=== PATIENT | male | born 1950 | race Caucasian/White ===

== ENCOUNTER 2024-09-03 16:46 | Inpatient (IN) | payer OTHER, MEDICAID ==
[~2024-09-03] VITALS: Ht 165.1 cm; Wt 63.0 kg
[2024-09-03 17:42] LABS: HEMATOCRIT 56.6 % (42.0-52.0); MEAN CORPUSCULAR HEMOGLOBIN 32.2 pg (27.0-33.0); MEAN CORPUSCULAR HGB CONC 36.2 g/dl (32.0-36.5); PLATELET COUNT, AUTOMATED 183 10^3/uL (150-450); RED BLOOD COUNT 6.36 10^6/uL (4.30-6.10); WHITE BLOOD COUNT 19.4 10^3/uL (4.0-10.0)
[2024-09-03 18:03] LABS: HEMOGLOBIN 20.5 g/dl (13.5-17.5)
[2024-09-03 18:14] LABS: BLOOD UREA NITROGEN 25 MG/DL (9-23); CALCIUM LEVEL 8.7 MG/DL (8.3-10.6); CARBON DIOXIDE LEVEL 23 MMOL/L (20-31); CHLORIDE LEVEL 94 MMOL/L (98-107); CREATININE FOR GFR 0.75 MG/DL (0.70-1.30); GLOMERULAR FILTRATION RATE > 60.0 (>42); GLUCOSE, FASTING 150 MG/DL (74-106); SODIUM LEVEL 131 MMOL/L (136-145)
[2024-09-03] MEDS: NS (Normal Saline) 0.9% 1,000 ML IV ONE (18:40)
[2024-09-03] MEDS ORDERED: ISOVUE-370 76% 100ML VIAL As Ordered ONE (18:45)
[2024-09-03] MEDS: NS 0.9% IV ONE (18:55)
[2024-09-03] MEDS: [UNRECOGNIZED DRUG - OTHER] IV ONE (18:55)
[2024-09-03 19:15] LABS: ALBUMIN 3.1 G/DL (3.2-5.2); ALKALINE PHOSPHATASE 91 U/L (40-129); ALT/SGPT 106 U/L (7.0-40); AST/SGOT 480 U/L (<34); BILIRUBIN,DIRECT 0.3 MG/DL (<0.4); BILIRUBIN,TOTAL 0.7 MG/DL (0.3-1.2)
[2024-09-03 19:22] LABS: CPK CREATINE PHOSPHOKINASE 13286 U/L (46-171)
[2024-09-03 20:55] LABS: APPEARANCE, URINE HAZY (CLEAR); BACTERIA, URINE AUTO 1+ (NEGATIVE); BILIRUBIN, URINE AUTO NEGATIVE (NEGATIVE); BLOOD, URINE BLOOD 3+ (NEGATIVE); COLOR, URINE AMBER (YELLOW); GLUCOSE, URINE (UA) AUTO 1+ mg/dL (NEGATIVE); GRANULAR CAST, URINE AUTO 20 /LPF; KETONE, URINE AUTO 1+ mg/dL (NEGATIVE); LEUKOCYTE ESTERASE, URINE AUTO NEGATIVE (NEGATIVE); MUCUS, URINE SMALL (NEGATIVE); NITRITE, URINE AUTO NEGATIVE (NEGATIVE); PROTEIN, URINE AUTO 3+ mg/dL (NEGATIVE); RBC, URINE AUTO 4 /HPF (0-3); SPECIFIC GRAVITY URINE AUTO 1.031 (1.002-1.035); SQUAMOUS EPITHELIAL CELL UR AU 2 /HPF (0-6); UROBILINOGEN, URINE AUTO 0.2 mg/dL (0.0-2.0); WBC, URINE AUTO 8 /HPF (0-3)
[2024-09-03 20:57] LABS: INR 0.88; PARTIAL THROMBOPLASTIN TIME 33.4 SECONDS (24.8-34.2); PROTHROMBIN TIME 12.3 SECONDS (12.5-14.5)
[2024-09-03] MEDS ORDERED: IBUP200C25 PO (21:27)
[2024-09-03] MEDS ORDERED: HOME MED LIST COMPLETE! XX SCH (21:30)
[2024-09-03] MEDS ORDERED: ACETAMINOPHEN 325 MG TAB PO PRN (22:45)
[2024-09-03] MEDS: NS (Normal Saline) 0.9% 2,000 ML IV SCH (23:30)
[2024-09-03] MEDS: DOXYCYCLINE HYCLATE 100MG TABLET PO SCH (23:37)
[2024-09-03] MEDS: PANTOPRAZOLE 40MG VIAL IV SCH (23:37)
[2024-09-03 23:43] LABS: CHOLESTEROL LEVEL 210 MG/DL (<200); CHOLESTEROL RISK RATIO 3.45 (<5); HDL CHOLESTEROL 60.8 MG/DL (>40); LDL CHOLESTEROL 125.4 MG/DL (<100); NON-HDL-C 149.2 MG/DL; TRIGLYCERIDES LEVEL 119 MG/DL (<150)
[2024-09-04] VITALS (10 sets, daily range): BP systolic 117–162; BP diastolic 61–82; TEMP 97.4–98.6; O2SAT 92–95
[2024-09-04] MEDS: cefTRIAXone SOD 2 GM in DEXTROSE 5% (D5W) ADV/MINI-BAG 50 ML IV SCH (00:22)
[2024-09-04 05:34] LABS: HEMATOCRIT 49.9 % (42.0-52.0); MEAN CORPUSCULAR HEMOGLOBIN 31.5 pg (27.0-33.0); MEAN CORPUSCULAR HGB CONC 35.1 g/dl (32.0-36.5); MEAN CORPUSCULAR VOLUME 89.7 fl (80.0-96.0); PLATELET COUNT, AUTOMATED 132 10^3/uL (150-450); RED BLOOD COUNT 5.56 10^6/uL (4.30-6.10); WHITE BLOOD COUNT 13.5 10^3/uL (4.0-10.0)
[2024-09-04 05:36] LABS: HEMOGLOBIN 17.5 g/dl (13.5-17.5)
[2024-09-04 05:56] LABS: ALKALINE PHOSPHATASE 60 U/L (40-129); ALT/SGPT 85 U/L (7.0-40); AST/SGOT 382 U/L (<34); BILIRUBIN,TOTAL 0.3 MG/DL (0.3-1.2); BLOOD UREA NITROGEN 20 MG/DL (9-23); CARBON DIOXIDE LEVEL 24 MMOL/L (20-31); CHLORIDE LEVEL 106 MMOL/L (98-107); CREATININE FOR GFR 0.57 MG/DL (0.70-1.30); GLOMERULAR FILTRATION RATE > 60.0 (>42); GLUCOSE, FASTING 88 MG/DL (74-106); POTASSIUM SERUM 3.7 MMOL/L (3.5-5.1); SODIUM LEVEL 138 MMOL/L (136-145); TOTAL PROTEIN 4.8 G/DL (5.7-8.2)
[2024-09-04] MEDS ORDERED: NS (Normal Saline) 0.9% 1,000 ML IV SCH (07:45)
[2024-09-04] MEDS: LIDOCAINE 5% (LIDODERM) PATCH TD SCH (09:11)
[2024-09-04] MEDS: LR 1,000 ML IV SCH (09:11)
[2024-09-04] MEDS ORDERED: LORazepam 2 MG TAB PO PRN (10:10)
[2024-09-04] MEDS: FOLIC ACID 1MG TAB PO SCH (10:19)
[2024-09-04] MEDS: MULTIVITAMINS/MINERALS THERAP 1 TAB PO SCH (10:19)
[2024-09-04] MEDS: THIAMINE 100 MG TAB PO SCH (10:19)
[2024-09-04] MEDS ORDERED: AMPICILLIN SOD/SULBACTAM SOD 1.5 GM in DEXTROSE 5% (D5W) ADV/MINI-BAG 50 ML IV SCH (10:25)
[2024-09-04 11:29] LABS: HEPATITIS B SURFACE ANTIBODY NEGATIVE (POSITIVE)
[2024-09-04 11:41] LABS: HEPATITIS B SURFACE ANTIGEN NEGATIVE (NEGATIVE)
[2024-09-04] MEDS: AMPICILLIN SOD/SULBACTAM SOD 3 GM in D5W MINI-BAG 100 ML IV SCH (11:45)
[2024-09-04] MEDS: ENOXAPARIN 40MG/0.4ML SYRINGE (J1650 PER 10MG) SC SCH (11:46)
[2024-09-04 12:03] LABS: HEPATITIS C VIRUS ABY INDEX 0.02 INDEX (<0.8)
[2024-09-04] MEDS: ACETAMINOPHEN 325 MG TAB PO PRN (14:45)
[2024-09-05] VITALS (10 sets, daily range): BP systolic 131–178; BP diastolic 65–88; TEMP 97.6–100.6; O2SAT 90–96
[2024-09-05] MEDS: KETOROLAC 30 MG/ML 1ML VIAL IV PRN (00:39)
[2024-09-05 05:24] LABS: MEAN CORPUSCULAR HEMOGLOBIN 31.3 pg (27.0-33.0); MEAN CORPUSCULAR HGB CONC 34.2 g/dl (32.0-36.5); MEAN CORPUSCULAR VOLUME 91.5 fl (80.0-96.0); PLATELET COUNT, AUTOMATED 111 10^3/uL (150-450); RED BLOOD COUNT 4.92 10^6/uL (4.30-6.10); WHITE BLOOD COUNT 9.7 10^3/uL (4.0-10.0)
[2024-09-05 05:27] LABS: HEMOGLOBIN 15.4 g/dl (13.5-17.5)
[2024-09-05 06:21] LABS: ALBUMIN 1.8 G/DL (3.2-5.2); ALKALINE PHOSPHATASE 52 U/L (40-129); ALT/SGPT 69 U/L (7.0-40); AST/SGOT 281 U/L (<34); BILIRUBIN,TOTAL 0.4 MG/DL (0.3-1.2); BLOOD UREA NITROGEN 13 MG/DL (9-23); CALCIUM LEVEL 7.2 MG/DL (8.3-10.6); CARBON DIOXIDE LEVEL 27 MMOL/L (20-31); CHLORIDE LEVEL 104 MMOL/L (98-107); CPK CREATINE PHOSPHOKINASE 5111 U/L (46-171); CREATININE FOR GFR 0.52 MG/DL (0.70-1.30); GLOMERULAR FILTRATION RATE > 60.0 (>42); GLUCOSE, FASTING 76 MG/DL (74-106); POTASSIUM SERUM 3.3 MMOL/L (3.5-5.1); SODIUM LEVEL 138 MMOL/L (136-145); TOTAL PROTEIN 4.4 G/DL (5.7-8.2)
[2024-09-05 07:35] LABS: ERYTHROCYTE SEDIMENTATION RATE 29 mm/hr (0-20)
[2024-09-05 07:50] LABS: C REACTIVE PROTEIN QUANTITATIV 12.17 MG/DL (<1.0)
[2024-09-05] MEDS: POTASSIUM CHLORIDE 10MEQ SR TABLET PO ONE (09:40)
[2024-09-06 00:05] VITALS: BP 137/69; TEMP 99.6; O2SAT 92
[2024-09-06 04:24] VITALS: BP 157/76; TEMP 100.3; O2SAT 90
[2024-09-06 07:11] LABS: HEMATOCRIT 42.3 % (42.0-52.0); HEMOGLOBIN 14.7 g/dl (13.5-17.5); MEAN CORPUSCULAR HEMOGLOBIN 31.7 pg (27.0-33.0); MEAN CORPUSCULAR HGB CONC 34.8 g/dl (32.0-36.5); MEAN CORPUSCULAR VOLUME 91.2 fl (80.0-96.0); RED BLOOD COUNT 4.64 10^6/uL (4.30-6.10)
[2024-09-06 07:40] LABS: PLATELET COUNT, AUTOMATED 88 10^3/uL (150-450)
[2024-09-06 07:42] LABS: ALBUMIN 1.6 G/DL (3.2-5.2); ALKALINE PHOSPHATASE 50 U/L (40-129); ALT/SGPT 56 U/L (7.0-40); AST/SGOT 204 U/L (<34); BILIRUBIN,TOTAL 0.5 MG/DL (0.3-1.2); BLOOD UREA NITROGEN 9 MG/DL (9-23); CARBON DIOXIDE LEVEL 30 MMOL/L (20-31); CHLORIDE LEVEL 100 MMOL/L (98-107); CREATININE FOR GFR 0.42 MG/DL (0.70-1.30); GLOMERULAR FILTRATION RATE > 60.0 (>42); GLUCOSE, FASTING 92 MG/DL (74-106); POTASSIUM SERUM 3.2 MMOL/L (3.5-5.1); SODIUM LEVEL 135 MMOL/L (136-145); TOTAL PROTEIN 4.2 G/DL (5.7-8.2)
[2024-09-06 07:59] LABS: CPK CREATINE PHOSPHOKINASE 3030 U/L (46-171)
[2024-09-06 08:00] VITALS: BP 154/81; TEMP 98.8; O2SAT 92
[2024-09-06] MEDS: OSELTAMIVIR PHOSPHATE 75 MG CAP PO SCH (09:27)
[2024-09-06 12:37] VITALS: BP 155/74; TEMP 98.2; O2SAT 91
[2024-09-06] MEDS: POTASSIUM CHLORIDE 10MEQ SR TABLET PO ONE (15:45)
[2024-09-06 16:00] VITALS: BP 156/68; TEMP 98.2; O2SAT 93
[2024-09-06] MEDS: AUGMENTIN 875 MG TAB PO SCH (20:19)
[2024-09-06 20:29] VITALS: BP 145/75; TEMP 100; O2SAT 92
[2024-09-07 00:19] VITALS: BP 155/77; TEMP 99.6; O2SAT 95
[2024-09-07 04:18] VITALS: BP 148/72; TEMP 99.6; O2SAT 92
[2024-09-07 07:29] VITALS: BP 160/76; TEMP 99.4; O2SAT 93
[2024-09-07 07:32] LABS: HEMATOCRIT 44.6 % (42.0-52.0); HEMOGLOBIN 15.3 g/dl (13.5-17.5); MEAN CORPUSCULAR HEMOGLOBIN 31.5 pg (27.0-33.0); MEAN CORPUSCULAR HGB CONC 34.3 g/dl (32.0-36.5); RED BLOOD COUNT 4.85 10^6/uL (4.30-6.10); WHITE BLOOD COUNT 6.8 10^3/uL (4.0-10.0)
[2024-09-07 07:40] LABS: PLATELET COUNT, AUTOMATED 99 10^3/uL (150-450)
[2024-09-07 08:20] LABS: ALBUMIN 1.7 G/DL (3.2-5.2); ALKALINE PHOSPHATASE 50 U/L (40-129); ALT/SGPT 59 U/L (7.0-40); AST/SGOT 187 U/L (<34); BILIRUBIN,TOTAL 0.5 MG/DL (0.3-1.2); BLOOD UREA NITROGEN 6 MG/DL (9-23); CALCIUM LEVEL 7.1 MG/DL (8.3-10.6); CARBON DIOXIDE LEVEL 31 MMOL/L (20-31); CHLORIDE LEVEL 99 MMOL/L (98-107); CPK CREATINE PHOSPHOKINASE 2154 U/L (46-171); GLOMERULAR FILTRATION RATE > 60.0 (>42); GLUCOSE, FASTING 89 MG/DL (74-106); POTASSIUM SERUM 3.4 MMOL/L (3.5-5.1); SODIUM LEVEL 136 MMOL/L (136-145); TOTAL PROTEIN 4.5 G/DL (5.7-8.2)
[2024-09-07] MEDS: POTASSIUM CHLORIDE 10MEQ SR TABLET PO ONE (10:48)
[2024-09-07] MEDS: MAG SULF 1GM/100ML (MAG RUN) 1 GM in IV 1 EA IV SCH (10:48)
[2024-09-07 16:00] VITALS: BP 142/75; TEMP 98.1; O2SAT 90
[2024-09-07 16:32] VITALS: O2SAT 95
[2024-09-07 19:47] VITALS: BP 156/74; TEMP 97.2; O2SAT 94
[2024-09-07] MEDS: CLOPIDOGREL 75 MG TAB PO SCH (23:00)
[2024-09-07] MEDS: ASPIRIN 81MG ENTERIC TABLET PO SCH (23:30)
[2024-09-08] MEDS: ONDANSETRON 4MG 2ML VIAL IV ONE (03:30)
[2024-09-08 07:41] VITALS: BP 183/86; TEMP 98.2; O2SAT 80
[2024-09-08] MEDS: ATORVASTATIN 20 MG TAB PO SCH (10:39)
[2024-09-08 11:00] VITALS: BP 180/98; TEMP 98.1; O2SAT 92
[2024-09-08] MEDS: amLODIPine 5 MG TAB PO SCH (11:55)
[2024-09-08 13:52] VITALS: BP 176/72
[2024-09-08 15:17] VITALS: BP 158/78; TEMP 98.3; O2SAT 94
[2024-09-08 15:21] LABS: HEMATOCRIT 50.3 % (42.0-52.0); HEMOGLOBIN 17.2 g/dl (13.5-17.5); MEAN CORPUSCULAR HEMOGLOBIN 31.4 pg (27.0-33.0); MEAN CORPUSCULAR HGB CONC 34.2 g/dl (32.0-36.5); MEAN CORPUSCULAR VOLUME 91.8 fl (80.0-96.0); PLATELET COUNT, AUTOMATED 157 10^3/uL (150-450); RED BLOOD COUNT 5.48 10^6/uL (4.30-6.10); WHITE BLOOD COUNT 5.7 10^3/uL (4.0-10.0)
[2024-09-08 15:48] LABS: HEMOGLOBIN A1c 6.2 % (4.0-6.0)
[2024-09-08 16:10] LABS: ALKALINE PHOSPHATASE 83 U/L (40-129); ALT/SGPT 73 U/L (7.0-40); AST/SGOT 170 U/L (<34); BILIRUBIN,TOTAL 0.6 MG/DL (0.3-1.2); BLOOD UREA NITROGEN 6 MG/DL (9-23); CALCIUM LEVEL 7.4 MG/DL (8.3-10.6); CARBON DIOXIDE LEVEL 34 MMOL/L (20-31); CHLORIDE LEVEL 96 MMOL/L (98-107); CHOLESTEROL LEVEL 124 MG/DL (<200); CHOLESTEROL RISK RATIO 3.69 (<5); CPK CREATINE PHOSPHOKINASE 1501 U/L (46-171); CREATININE FOR GFR 0.54 MG/DL (0.70-1.30); GLOMERULAR FILTRATION RATE > 60.0 (>42); GLUCOSE, FASTING 106 MG/DL (74-106); HDL CHOLESTEROL 33.6 MG/DL (>40); LDL CHOLESTEROL 69.4 MG/DL (<100); NON-HDL-C 90.4 MG/DL; SODIUM LEVEL 136 MMOL/L (136-145); TOTAL PROTEIN 5.2 G/DL (5.7-8.2); TRIGLYCERIDES LEVEL 105 MG/DL (<150)
[2024-09-09 05:46] LABS: HEMATOCRIT 48.4 % (42.0-52.0); HEMOGLOBIN 16.8 g/dl (13.5-17.5); MEAN CORPUSCULAR HEMOGLOBIN 31.6 pg (27.0-33.0); MEAN CORPUSCULAR HGB CONC 34.7 g/dl (32.0-36.5); PLATELET COUNT, AUTOMATED 161 10^3/uL (150-450); RED BLOOD COUNT 5.32 10^6/uL (4.30-6.10); WHITE BLOOD COUNT 13.4 10^3/uL (4.0-10.0)
[2024-09-09 06:08] LABS: ALBUMIN 1.9 G/DL (3.2-5.2); ALKALINE PHOSPHATASE 82 U/L (40-129); ALT/SGPT 64 U/L (7.0-40); AST/SGOT 119 U/L (<34); BILIRUBIN,TOTAL 0.7 MG/DL (0.3-1.2); BLOOD UREA NITROGEN 7 MG/DL (9-23); CALCIUM LEVEL 7.6 MG/DL (8.3-10.6); CARBON DIOXIDE LEVEL 31 MMOL/L (20-31); CHLORIDE LEVEL 95 MMOL/L (98-107); CREATININE FOR GFR 0.53 MG/DL (0.70-1.30); GLOMERULAR FILTRATION RATE > 60.0 (>42); GLUCOSE, FASTING 96 MG/DL (74-106); POTASSIUM SERUM 3.4 MMOL/L (3.5-5.1); SODIUM LEVEL 136 MMOL/L (136-145); TOTAL PROTEIN 5.1 G/DL (5.7-8.2)
[2024-09-09 06:41] LABS: MAGNESIUM LEVEL 1.8 MG/DL (1.8-2.4)
[2024-09-09 07:33] VITALS: BP 162/84; TEMP 99.2; O2SAT 90
[2024-09-09] MEDS: POTASSIUM CHLORIDE 10MEQ SR TABLET PO ONE (09:49)
[2024-09-09 13:33] VITALS: BP 147/71; TEMP 97.9; O2SAT 88
[2024-09-09] MEDS: LOSARTAN 25 MG TAB PO SCH (13:48)
[2024-09-09 15:20] VITALS: BP 137/75; TEMP 98; O2SAT 91
[2024-09-09 16:29] LABS: PROCALCITONIN 0.28 ng/ml
[2024-09-09 21:04] VITALS: BP 147/76; TEMP 99.1; O2SAT 88
[2024-09-10 04:00] VITALS: BP 126/59; TEMP 99; O2SAT 89
[2024-09-10 05:01] LABS: HEMATOCRIT 44.7 % (42.0-52.0); HEMOGLOBIN 15.7 g/dl (13.5-17.5); MEAN CORPUSCULAR HEMOGLOBIN 31.3 pg (27.0-33.0); MEAN CORPUSCULAR HGB CONC 35.1 g/dl (32.0-36.5); MEAN CORPUSCULAR VOLUME 89.2 fl (80.0-96.0); PLATELET COUNT, AUTOMATED 185 10^3/uL (150-450); RED BLOOD COUNT 5.01 10^6/uL (4.30-6.10); WHITE BLOOD COUNT 19.2 10^3/uL (4.0-10.0)
[2024-09-10 07:43] LABS: BLOOD UREA NITROGEN 16 MG/DL (9-23); CALCIUM LEVEL 7.3 MG/DL (8.3-10.6); CARBON DIOXIDE LEVEL 28 MMOL/L (20-31); CHLORIDE LEVEL 98 MMOL/L (98-107); CREATININE FOR GFR 0.51 MG/DL (0.70-1.30); GLOMERULAR FILTRATION RATE > 60.0 (>42); GLUCOSE, FASTING 103 MG/DL (74-106); POTASSIUM SERUM 3.4 MMOL/L (3.5-5.1); SODIUM LEVEL 137 MMOL/L (136-145)
[2024-09-10 07:55] VITALS: BP 150/70; TEMP 99.3; O2SAT 92
[2024-09-10 09:47] LABS: PROCALCITONIN 1.01 ng/ml
[2024-09-10 13:33] LABS: APPEARANCE, URINE HAZY (CLEAR); BACTERIA, URINE AUTO NEGATIVE (NEGATIVE); BILIRUBIN, URINE AUTO NEGATIVE (NEGATIVE); BLOOD, URINE BLOOD 3+ (NEGATIVE); COLOR, URINE AMBER (YELLOW); GLUCOSE, URINE (UA) AUTO 1+ mg/dL (NEGATIVE); KETONE, URINE AUTO 1+ mg/dL (NEGATIVE); LEUKOCYTE ESTERASE, URINE AUTO NEGATIVE (NEGATIVE); MUCUS, URINE SMALL (NEGATIVE); NITRITE, URINE AUTO NEGATIVE (NEGATIVE); PROTEIN, URINE AUTO 2+ mg/dL (NEGATIVE); RBC, URINE AUTO TNTC /HPF (0-3); SPECIFIC GRAVITY URINE AUTO 1.027 (1.002-1.035); SQUAMOUS EPITHELIAL CELL UR AU 0 /HPF (0-6); WBC, URINE AUTO 4 /HPF (0-3)
[2024-09-10 16:22] VITALS: BP 145/75; TEMP 99.3; O2SAT 92
[2024-09-10 17:35] VITALS: TEMP 97.2; O2SAT 100
[2024-09-10 18:00] VITALS: BP 142/80
[2024-09-10 20:34] VITALS: BP 141/79; TEMP 97.5; O2SAT 91
[2024-09-11 03:34] VITALS: BP 141/78; TEMP 97.9; O2SAT 93
[2024-09-11 11:54] LABS: BASO % 0.2 % (0.0-1.0); EOS % 0.1 % (0.0-3.0); HEMATOCRIT 43.7 % (42.0-52.0); HEMOGLOBIN 15.1 g/dl (13.5-17.5); LYMPH # 0.5 10^3/uL (1.5-5.0); MEAN CORPUSCULAR HEMOGLOBIN 31.6 pg (27.0-33.0); MEAN CORPUSCULAR HGB CONC 34.6 g/dl (32.0-36.5); MEAN CORPUSCULAR VOLUME 91.4 fl (80.0-96.0); MONO # 1.3 10^3/uL (0.0-0.8); MONO % 7.4 % (2.0-8.0); NEUTROPHILS # 15.6 10^3/uL (1.5-8.5); NEUTROPHILS % 88.6 % (36.0-66.0); PLATELET COUNT, AUTOMATED 272 10^3/uL (150-450); RED BLOOD COUNT 4.78 10^6/uL (4.30-6.10); WHITE BLOOD COUNT 17.6 10^3/uL (4.0-10.0)
[2024-09-11 12:00] VITALS: BP 138/74; TEMP 97.9; O2SAT 92
[2024-09-11 12:21] LABS: BLOOD UREA NITROGEN 21 MG/DL (9-23); CALCIUM LEVEL 7.8 MG/DL (8.3-10.6); CARBON DIOXIDE LEVEL 30 MMOL/L (20-31); CHLORIDE LEVEL 100 MMOL/L (98-107); CPK CREATINE PHOSPHOKINASE 187 U/L (46-171); CREATININE FOR GFR 0.47 MG/DL (0.70-1.30); GLOMERULAR FILTRATION RATE > 60.0 (>42); GLUCOSE, FASTING 116 MG/DL (74-106); MAGNESIUM LEVEL 1.9 MG/DL (1.8-2.4); POTASSIUM SERUM 3.5 MMOL/L (3.5-5.1); SODIUM LEVEL 140 MMOL/L (136-145)
[2024-09-11] MEDS: MIRALAX *UNIT DOSE* 17GM PACKET PO PRN (15:06)
[2024-09-11] MEDS: SENNA 8.6 MG TAB (SENOKOT) PO PRN (15:06)
[2024-09-11 18:43] VITALS: O2SAT 91
[2024-09-11 20:28] VITALS: BP 149/79; TEMP 97.7; O2SAT 89
[2024-09-11 20:43] VITALS: O2SAT 91
[2024-09-11] MEDS: AUGMENTIN 875 MG TAB PO SCH (21:00)
[2024-09-11] MEDS: DOXYCYCLINE HYCLATE 100MG TABLET PO SCH (21:00)
[2024-09-12 03:51] VITALS: BP 151/81; TEMP 97.9; O2SAT 95
[2024-09-12 06:24] LABS: BASO % 0.1 % (0.0-1.0); EOS % 0.1 % (0.0-3.0); HEMATOCRIT 42.3 % (42.0-52.0); HEMOGLOBIN 14.6 g/dl (13.5-17.5); LYMPH # 0.6 10^3/uL (1.5-5.0); LYMPH % 3.4 % (24.0-44.0); MEAN CORPUSCULAR HGB CONC 34.5 g/dl (32.0-36.5); MEAN CORPUSCULAR VOLUME 92.8 fl (80.0-96.0); MONO # 1.5 10^3/uL (0.0-0.8); MONO % 8.7 % (2.0-8.0); NEUTROPHILS # 15.2 10^3/uL (1.5-8.5); NEUTROPHILS % 87.1 % (36.0-66.0); PLATELET COUNT, AUTOMATED 311 10^3/uL (150-450); RED BLOOD COUNT 4.56 10^6/uL (4.30-6.10); WHITE BLOOD COUNT 17.4 10^3/uL (4.0-10.0)
[2024-09-12 06:57] LABS: BLOOD UREA NITROGEN 21 MG/DL (9-23); CALCIUM LEVEL 7.9 MG/DL (8.3-10.6); CARBON DIOXIDE LEVEL 30 MMOL/L (20-31); CHLORIDE LEVEL 101 MMOL/L (98-107); CREATININE FOR GFR 0.46 MG/DL (0.70-1.30); GLOMERULAR FILTRATION RATE > 60.0 (>42); GLUCOSE, FASTING 93 MG/DL (74-106); POTASSIUM SERUM 3.6 MMOL/L (3.5-5.1); SODIUM LEVEL 141 MMOL/L (136-145)
[2024-09-12 11:00] VITALS: O2SAT 86
[2024-09-12 12:00] VITALS: BP 144/78; TEMP 97.2; O2SAT 93
[2024-09-12 16:22] VITALS: O2SAT 84
[2024-09-12 16:24] VITALS: O2SAT 93
[2024-09-12] MEDS: MOM 30ML SUSPENSION UDC PO PRN (18:19)
[2024-09-12 22:00] VITALS: BP 141/75; TEMP 97.2; O2SAT 95
[2024-09-13 04:00] VITALS: BP 147/76; TEMP 97.6; O2SAT 92
[2024-09-13 06:20] LABS: BASO % 0.2 % (0.0-1.0); EOS # 0.1 10^3/uL (0.0-0.5); EOS % 0.4 % (0.0-3.0); HEMOGLOBIN 14.2 g/dl (13.5-17.5); LYMPH # 0.5 10^3/uL (1.5-5.0); LYMPH % 2.8 % (24.0-44.0); MEAN CORPUSCULAR VOLUME 93.9 fl (80.0-96.0); MONO # 1.6 10^3/uL (0.0-0.8); MONO % 9.5 % (2.0-8.0); NEUTROPHILS # 14.7 10^3/uL (1.5-8.5); NEUTROPHILS % 86.4 % (36.0-66.0); PLATELET COUNT, AUTOMATED 363 10^3/uL (150-450); RED BLOOD COUNT 4.58 10^6/uL (4.30-6.10)
[2024-09-13 06:52] LABS: ALBUMIN 1.6 G/DL (3.2-5.2); ALKALINE PHOSPHATASE 91 U/L (40-129); ALT/SGPT 33 U/L (7.0-40); AST/SGOT 41 U/L (<34); BILIRUBIN,DIRECT 0.4 MG/DL (<0.4); BILIRUBIN,TOTAL 0.8 MG/DL (0.3-1.2); BLOOD UREA NITROGEN 20 MG/DL (9-23); CALCIUM LEVEL 7.7 MG/DL (8.3-10.6); CARBON DIOXIDE LEVEL 34 MMOL/L (20-31); CHLORIDE LEVEL 102 MMOL/L (98-107); CREATININE FOR GFR 0.45 MG/DL (0.70-1.30); GLOMERULAR FILTRATION RATE > 60.0 (>42); GLUCOSE, FASTING 113 MG/DL (74-106); POTASSIUM SERUM 3.6 MMOL/L (3.5-5.1); SODIUM LEVEL 141 MMOL/L (136-145); TOTAL PROTEIN 4.9 G/DL (5.7-8.2)
[2024-09-13] MEDS: LORazepam 2 MG/ML 1ML VIAL IV STA (11:24)
[2024-09-13 12:00] VITALS: BP 135/74; TEMP 97.3; O2SAT 95
[2024-09-13] MEDS: DOXYCYCLINE HYCLATE 100 MG in DEXTROSE 5% (D5W) MINI-BAG PLU 100 ML IV SCH (18:08)
[2024-09-13 20:00] VITALS: BP 137/67; TEMP 97; O2SAT 90
[2024-09-13] MEDS: DOCUSATE SOD LIQ 100MG/10ML UDC PO SCH (22:06)
[2024-09-13] MEDS: PIPERACILLIN/TAZOBACTAM SOD 3.375 GM in DEXTROSE 5% (D5W) ADV/MINI-BAG 50 ML IV SCH (22:07)
[2024-09-14 04:00] VITALS: BP 137/68; TEMP 97.5; O2SAT 95
[2024-09-14 04:41] VITALS: BP 137/68; TEMP 97.5; O2SAT 97
[2024-09-14 05:53] LABS: BASO % 0.2 % (0.0-1.0); EOS # 0.1 10^3/uL (0.0-0.5); HEMATOCRIT 40.9 % (42.0-52.0); HEMOGLOBIN 13.2 g/dl (13.5-17.5); LYMPH # 0.7 10^3/uL (1.5-5.0); LYMPH % 4.7 % (24.0-44.0); MEAN CORPUSCULAR HEMOGLOBIN 30.7 pg (27.0-33.0); MEAN CORPUSCULAR HGB CONC 32.3 g/dl (32.0-36.5); MEAN CORPUSCULAR VOLUME 95.1 fl (80.0-96.0); MONO # 1.3 10^3/uL (0.0-0.8); MONO % 9.1 % (2.0-8.0); NEUTROPHILS # 12.4 10^3/uL (1.5-8.5); NEUTROPHILS % 84.5 % (36.0-66.0); PLATELET COUNT, AUTOMATED 412 10^3/uL (150-450); WHITE BLOOD COUNT 14.7 10^3/uL (4.0-10.0)
[2024-09-14 06:15] LABS: ALBUMIN 1.5 G/DL (3.2-5.2); ALKALINE PHOSPHATASE 85 U/L (40-129); ALT/SGPT 27 U/L (7.0-40); AST/SGOT 34 U/L (<34); BILIRUBIN,DIRECT 0.4 MG/DL (<0.4); BILIRUBIN,TOTAL 0.7 MG/DL (0.3-1.2); BLOOD UREA NITROGEN 20 MG/DL (9-23); CARBON DIOXIDE LEVEL 32 MMOL/L (20-31); CHLORIDE LEVEL 105 MMOL/L (98-107); CREATININE FOR GFR 0.48 MG/DL (0.70-1.30); GLOMERULAR FILTRATION RATE > 60.0 (>42); GLUCOSE, FASTING 104 MG/DL (74-106); POTASSIUM SERUM 3.6 MMOL/L (3.5-5.1); SODIUM LEVEL 144 MMOL/L (136-145); TOTAL PROTEIN 4.9 G/DL (5.7-8.2)
[2024-09-14 12:00] VITALS: BP 125/66; TEMP 97.5; O2SAT 95
[2024-09-14 14:04] LABS: PROCALCITONIN 0.21 ng/ml
[2024-09-14 14:49] VITALS: O2SAT 91
[2024-09-14 20:00] VITALS: BP 138/63; TEMP 97.5; O2SAT 92
[2024-09-14] MEDS: DOXYCYCLINE HYCLATE 100MG TABLET PO SCH (21:04)
[2024-09-15 04:00] VITALS: BP 122/64; TEMP 97.3; O2SAT 94
[2024-09-15 05:43] LABS: BASO % 0.2 % (0.0-1.0); EOS # 0.2 10^3/uL (0.0-0.5); EOS % 1.2 % (0.0-3.0); HEMATOCRIT 40.1 % (42.0-52.0); HEMOGLOBIN 13.3 g/dl (13.5-17.5); LYMPH # 0.7 10^3/uL (1.5-5.0); LYMPH % 5.3 % (24.0-44.0); MEAN CORPUSCULAR HEMOGLOBIN 31.5 pg (27.0-33.0); MEAN CORPUSCULAR HGB CONC 33.2 g/dl (32.0-36.5); MONO # 1.2 10^3/uL (0.0-0.8); MONO % 9.8 % (2.0-8.0); NEUTROPHILS # 10.5 10^3/uL (1.5-8.5); NEUTROPHILS % 82.7 % (36.0-66.0); PLATELET COUNT, AUTOMATED 432 10^3/uL (150-450); RED BLOOD COUNT 4.22 10^6/uL (4.30-6.10); WHITE BLOOD COUNT 12.7 10^3/uL (4.0-10.0)
[2024-09-15 06:05] LABS: BLOOD UREA NITROGEN 19 MG/DL (9-23); CALCIUM LEVEL 7.6 MG/DL (8.3-10.6); CARBON DIOXIDE LEVEL 34 MMOL/L (20-31); CHLORIDE LEVEL 103 MMOL/L (98-107); GLOMERULAR FILTRATION RATE > 60.0 (>42); GLUCOSE, FASTING 115 MG/DL (74-106); POTASSIUM SERUM 3.4 MMOL/L (3.5-5.1); SODIUM LEVEL 143 MMOL/L (136-145)
[2024-09-15 08:07] LABS: MAGNESIUM LEVEL 1.9 MG/DL (1.8-2.4)
[2024-09-15 08:15] VITALS: BP 161/77; TEMP 97.3; O2SAT 94
[2024-09-15 08:40] VITALS: BP 167/73; TEMP 99; O2SAT 92
[2024-09-15] MEDS: POTASSIUM CHLORIDE 10MEQ SR TABLET PO ONE (09:34)
[2024-09-15 12:00] VITALS: BP 139/69; TEMP 97.3
[2024-09-15 20:28] VITALS: BP 137/69; TEMP 97.5; O2SAT 93
[2024-09-16 03:48] VITALS: BP 145/71; TEMP 97.5; O2SAT 96
[2024-09-16 06:22] LABS: BASO % 0.2 % (0.0-1.0); EOS # 0.1 10^3/uL (0.0-0.5); HEMATOCRIT 40.7 % (42.0-52.0); HEMOGLOBIN 13.6 g/dl (13.5-17.5); LYMPH # 0.8 10^3/uL (1.5-5.0); LYMPH % 7.1 % (24.0-44.0); MEAN CORPUSCULAR HEMOGLOBIN 31.5 pg (27.0-33.0); MEAN CORPUSCULAR HGB CONC 33.4 g/dl (32.0-36.5); MEAN CORPUSCULAR VOLUME 94.2 fl (80.0-96.0); MONO # 1.2 10^3/uL (0.0-0.8); MONO % 10.8 % (2.0-8.0); NEUTROPHILS # 8.7 10^3/uL (1.5-8.5); NEUTROPHILS % 80.2 % (36.0-66.0); PLATELET COUNT, AUTOMATED 469 10^3/uL (150-450); RED BLOOD COUNT 4.32 10^6/uL (4.30-6.10); WHITE BLOOD COUNT 10.9 10^3/uL (4.0-10.0)
[2024-09-16 06:42] LABS: BLOOD UREA NITROGEN 17 MG/DL (9-23); CALCIUM LEVEL 7.9 MG/DL (8.3-10.6); CARBON DIOXIDE LEVEL 31 MMOL/L (20-31); CHLORIDE LEVEL 106 MMOL/L (98-107); CREATININE FOR GFR 0.46 MG/DL (0.70-1.30); GLOMERULAR FILTRATION RATE > 60.0 (>42); GLUCOSE, FASTING 104 MG/DL (74-106); POTASSIUM SERUM 3.9 MMOL/L (3.5-5.1); SODIUM LEVEL 143 MMOL/L (136-145)
[2024-09-16 12:00] VITALS: BP 145/72; TEMP 97.7; O2SAT 90
[2024-09-16 20:29] VITALS: TEMP 97.7; O2SAT 95
[2024-09-17 03:38] VITALS: BP 135/74; TEMP 97.5; O2SAT 95
[2024-09-17] MEDS: IPRATROPIUM 0.5MG/ALBUTEROL 2.5MG INH SOL UD 3ML NEB SCH (07:29)
[2024-09-17 08:28] LABS: BASO % 0.4 % (0.0-1.0); EOS # 0.1 10^3/uL (0.0-0.5); HEMATOCRIT 41.3 % (42.0-52.0); HEMOGLOBIN 13.9 g/dl (13.5-17.5); LYMPH # 0.9 10^3/uL (1.5-5.0); LYMPH % 7.8 % (24.0-44.0); MEAN CORPUSCULAR HEMOGLOBIN 31.1 pg (27.0-33.0); MEAN CORPUSCULAR HGB CONC 33.7 g/dl (32.0-36.5); MEAN CORPUSCULAR VOLUME 92.4 fl (80.0-96.0); MONO # 1.1 10^3/uL (0.0-0.8); MONO % 9.5 % (2.0-8.0); NEUTROPHILS # 9.1 10^3/uL (1.5-8.5); NEUTROPHILS % 80.6 % (36.0-66.0); PLATELET COUNT, AUTOMATED 514 10^3/uL (150-450); RED BLOOD COUNT 4.47 10^6/uL (4.30-6.10); WHITE BLOOD COUNT 11.2 10^3/uL (4.0-10.0)
[2024-09-17] MEDS: FUROSEMIDE 20MG/2ML VIAL IV SCH (08:39)
[2024-09-17 08:52] LABS: BLOOD UREA NITROGEN 13 MG/DL (9-23); CALCIUM LEVEL 7.8 MG/DL (8.3-10.6); CARBON DIOXIDE LEVEL 31 MMOL/L (20-31); CHLORIDE LEVEL 105 MMOL/L (98-107); CREATININE FOR GFR 0.44 MG/DL (0.70-1.30); GLOMERULAR FILTRATION RATE > 60.0 (>42); GLUCOSE, FASTING 119 MG/DL (74-106); POTASSIUM SERUM 3.6 MMOL/L (3.5-5.1); SODIUM LEVEL 142 MMOL/L (136-145)
[2024-09-17 12:00] VITALS: TEMP 97.5; O2SAT 98
[2024-09-17 12:41] VITALS: BP 130/68
[2024-09-17] MEDS: oxyCODONE 5MG TAB PO ONE (13:00)
[2024-09-17 22:34] VITALS: BP 130/71; TEMP 97.7; O2SAT 92
[2024-09-18 04:00] VITALS: BP 134/72; TEMP 97.5; O2SAT 96
[2024-09-18 06:18] LABS: HEMATOCRIT 45.6 % (42.0-52.0); MEAN CORPUSCULAR HEMOGLOBIN 31.1 pg (27.0-33.0); MEAN CORPUSCULAR HGB CONC 32.9 g/dl (32.0-36.5); MEAN CORPUSCULAR VOLUME 94.4 fl (80.0-96.0); PLATELET COUNT, AUTOMATED 570 10^3/uL (150-450); RED BLOOD COUNT 4.83 10^6/uL (4.30-6.10); WHITE BLOOD COUNT 11.4 10^3/uL (4.0-10.0)
[2024-09-18 06:54] LABS: BLOOD UREA NITROGEN 14 MG/DL (9-23); CALCIUM LEVEL 8.9 MG/DL (8.3-10.6); CARBON DIOXIDE LEVEL 32 MMOL/L (20-31); CHLORIDE LEVEL 103 MMOL/L (98-107); CREATININE FOR GFR 0.58 MG/DL (0.70-1.30); GLOMERULAR FILTRATION RATE > 60.0 (>42); GLUCOSE, FASTING 104 MG/DL (74-106); SODIUM LEVEL 144 MMOL/L (136-145)
[2024-09-18 11:11] VITALS: O2SAT 89; O2SAT 92
[2024-09-18 12:00] VITALS: BP 129/73; TEMP 97.9; O2SAT 97
[2024-09-18 20:00] VITALS: BP 131/72; TEMP 97.5; O2SAT 96
[2024-09-19 05:01] VITALS: BP 134/72; TEMP 97.5; O2SAT 93
[2024-09-19 05:30] LABS: HEMATOCRIT 43.1 % (42.0-52.0); MEAN CORPUSCULAR HEMOGLOBIN 30.6 pg (27.0-33.0); MEAN CORPUSCULAR HGB CONC 32.5 g/dl (32.0-36.5); MEAN CORPUSCULAR VOLUME 94.1 fl (80.0-96.0); PLATELET COUNT, AUTOMATED 519 10^3/uL (150-450); RED BLOOD COUNT 4.58 10^6/uL (4.30-6.10); WHITE BLOOD COUNT 11.2 10^3/uL (4.0-10.0)
[2024-09-19 05:42] LABS: BLOOD UREA NITROGEN 15 MG/DL (9-23); CALCIUM LEVEL 8.1 MG/DL (8.3-10.6); CARBON DIOXIDE LEVEL 32 MMOL/L (20-31); CHLORIDE LEVEL 104 MMOL/L (98-107); CREATININE FOR GFR 0.55 MG/DL (0.70-1.30); GLOMERULAR FILTRATION RATE > 60.0 (>42); GLUCOSE, FASTING 110 MG/DL (74-106); POTASSIUM SERUM 3.1 MMOL/L (3.5-5.1); SODIUM LEVEL 145 MMOL/L (136-145)
[2024-09-19] MEDS: POTASSIUM CHLORIDE 10MEQ SR TABLET PO ONE ×2 (06:02→10:12)
[2024-09-19 09:57] VITALS: O2SAT 92
[2024-09-19 10:35] LABS: MAGNESIUM LEVEL 1.8 MG/DL (1.8-2.4)
[2024-09-19 12:00] VITALS: BP 136/77; TEMP 97.9; O2SAT 92
[2024-09-19 20:40] VITALS: BP 133/72; TEMP 97.5; O2SAT 92
[2024-09-20 03:53] VITALS: BP 143/78; TEMP 97.5; O2SAT 92
[2024-09-20 06:38] LABS: HEMATOCRIT 41.5 % (42.0-52.0); HEMOGLOBIN 13.7 g/dl (13.5-17.5); MEAN CORPUSCULAR HEMOGLOBIN 31.4 pg (27.0-33.0); PLATELET COUNT, AUTOMATED 516 10^3/uL (150-450); RED BLOOD COUNT 4.37 10^6/uL (4.30-6.10); WHITE BLOOD COUNT 12.5 10^3/uL (4.0-10.0)
[2024-09-20 07:11] LABS: BLOOD UREA NITROGEN 17 MG/DL (9-23); CALCIUM LEVEL 8.4 MG/DL (8.3-10.6); CARBON DIOXIDE LEVEL 28 MMOL/L (20-31); CHLORIDE LEVEL 107 MMOL/L (98-107); CREATININE FOR GFR 0.54 MG/DL (0.70-1.30); GLOMERULAR FILTRATION RATE > 60.0 (>42); GLUCOSE, FASTING 102 MG/DL (74-106); POTASSIUM SERUM 4.2 MMOL/L (3.5-5.1); SODIUM LEVEL 144 MMOL/L (136-145)
[2024-09-20 12:00] VITALS: BP 143/97; TEMP 97.3; O2SAT 94
[2024-09-20 20:14] VITALS: BP 146/96; TEMP 97.5; O2SAT 93
[2024-09-21 04:02] VITALS: BP 124/72; TEMP 97.7; O2SAT 94
[2024-09-21 06:35] LABS: HEMATOCRIT 41.1 % (42.0-52.0); HEMOGLOBIN 13.7 g/dl (13.5-17.5); MEAN CORPUSCULAR HEMOGLOBIN 31.1 pg (27.0-33.0); MEAN CORPUSCULAR HGB CONC 33.3 g/dl (32.0-36.5); MEAN CORPUSCULAR VOLUME 93.4 fl (80.0-96.0); PLATELET COUNT, AUTOMATED 514 10^3/uL (150-450); WHITE BLOOD COUNT 11.2 10^3/uL (4.0-10.0)
[2024-09-21 07:04] LABS: BLOOD UREA NITROGEN 21 MG/DL (9-23); CALCIUM LEVEL 8.4 MG/DL (8.3-10.6); CARBON DIOXIDE LEVEL 28 MMOL/L (20-31); CHLORIDE LEVEL 108 MMOL/L (98-107); CREATININE FOR GFR 0.53 MG/DL (0.70-1.30); GLOMERULAR FILTRATION RATE > 60.0 (>42); GLUCOSE, FASTING 103 MG/DL (74-106); POTASSIUM SERUM 4.1 MMOL/L (3.5-5.1); SODIUM LEVEL 144 MMOL/L (136-145)
[2024-09-21 12:00] VITALS: BP 129/72; TEMP 97.3; O2SAT 94
[2024-09-21] MEDS: metroNIDAZOLE (FLAGYL) 500MG TABLET PO SCH (15:13)
[2024-09-21] MEDS: CIPROFLOXACIN 500MG TABLET PO SCH (17:20)
[2024-09-21] MEDS: LACTOBACILLUS ACIDOPHILUS CAP (BACID) PO SCH (17:20)
[2024-09-21 20:10] VITALS: BP 125/71; TEMP 97.5; O2SAT 93
[2024-09-21] MEDS: OLANZapine ORAL DISINTEGRATING TAB 5MG PO SCH (21:26)
[2024-09-21 23:24] LABS: HIV 1&2 SCREEN NEGATIVE (NEGATIVE)
[2024-09-22 04:00] VITALS: BP 124/71; TEMP 97.5; O2SAT 93
[2024-09-22 06:15] LABS: HEMATOCRIT 42.6 % (42.0-52.0); HEMOGLOBIN 14.4 g/dl (13.5-17.5); MEAN CORPUSCULAR HEMOGLOBIN 31.5 pg (27.0-33.0); MEAN CORPUSCULAR HGB CONC 33.8 g/dl (32.0-36.5); MEAN CORPUSCULAR VOLUME 93.2 fl (80.0-96.0); PLATELET COUNT, AUTOMATED 529 10^3/uL (150-450); RED BLOOD COUNT 4.57 10^6/uL (4.30-6.10)
[2024-09-22 06:45] LABS: BLOOD UREA NITROGEN 23 MG/DL (9-23); C REACTIVE PROTEIN QUANTITATIV 1.27 MG/DL (<1.0); CALCIUM LEVEL 8.8 MG/DL (8.3-10.6); CARBON DIOXIDE LEVEL 27 MMOL/L (20-31); CHLORIDE LEVEL 106 MMOL/L (98-107); CREATININE FOR GFR 0.59 MG/DL (0.70-1.30); GLOMERULAR FILTRATION RATE > 60.0 (>42); GLUCOSE, FASTING 97 MG/DL (74-106); SODIUM LEVEL 143 MMOL/L (136-145)
[2024-09-22 12:00] VITALS: BP 143/91; TEMP 97.3; O2SAT 93
[2024-09-22 20:22] VITALS: BP 147/78; TEMP 98.6; O2SAT 94
[2024-09-23 03:29] VITALS: BP 142/78; TEMP 99; O2SAT 94
[2024-09-23 06:14] LABS: HEMATOCRIT 42.4 % (42.0-52.0); HEMOGLOBIN 14.4 g/dl (13.5-17.5); MEAN CORPUSCULAR HEMOGLOBIN 31.5 pg (27.0-33.0); MEAN CORPUSCULAR VOLUME 92.8 fl (80.0-96.0); PLATELET COUNT, AUTOMATED 481 10^3/uL (150-450); RED BLOOD COUNT 4.57 10^6/uL (4.30-6.10); WHITE BLOOD COUNT 12.3 10^3/uL (4.0-10.0)
[2024-09-23 06:38] LABS: BLOOD UREA NITROGEN 25 MG/DL (9-23); CALCIUM LEVEL 8.5 MG/DL (8.3-10.6); CARBON DIOXIDE LEVEL 28 MMOL/L (20-31); CHLORIDE LEVEL 105 MMOL/L (98-107); CREATININE FOR GFR 0.55 MG/DL (0.70-1.30); GLOMERULAR FILTRATION RATE > 60.0 (>42); GLUCOSE, FASTING 106 MG/DL (74-106); POTASSIUM SERUM 3.6 MMOL/L (3.5-5.1); SODIUM LEVEL 143 MMOL/L (136-145)
[2024-09-23 12:00] VITALS: BP 139/73; TEMP 97.9; O2SAT 95
[2024-09-23 20:00] VITALS: BP 146/76; TEMP 98.2; O2SAT 94
[2024-09-24 04:00] VITALS: BP 138/75; TEMP 97; O2SAT 91
[2024-09-24 05:42] LABS: HEMATOCRIT 45.6 % (42.0-52.0); HEMOGLOBIN 14.9 g/dl (13.5-17.5); MEAN CORPUSCULAR HEMOGLOBIN 30.7 pg (27.0-33.0); MEAN CORPUSCULAR HGB CONC 32.7 g/dl (32.0-36.5); MEAN CORPUSCULAR VOLUME 93.8 fl (80.0-96.0); PLATELET COUNT, AUTOMATED 494 10^3/uL (150-450); RED BLOOD COUNT 4.86 10^6/uL (4.30-6.10); WHITE BLOOD COUNT 13.1 10^3/uL (4.0-10.0)
[2024-09-24 06:06] LABS: BLOOD UREA NITROGEN 29 MG/DL (9-23); CALCIUM LEVEL 9.1 MG/DL (8.3-10.6); CARBON DIOXIDE LEVEL 28 MMOL/L (20-31); CHLORIDE LEVEL 106 MMOL/L (98-107); CREATININE FOR GFR 0.63 MG/DL (0.70-1.30); GLOMERULAR FILTRATION RATE > 60.0 (>42); GLUCOSE, FASTING 114 MG/DL (74-106); POTASSIUM SERUM 3.8 MMOL/L (3.5-5.1); SODIUM LEVEL 144 MMOL/L (136-145)
[2024-09-24 08:26] VITALS: BP 144/88; TEMP 99.7; O2SAT 92
[2024-09-24 12:00] VITALS: BP 124/73; TEMP 97.9; O2SAT 94
[2024-09-24 20:21] VITALS: BP 125/72; TEMP 98.8; O2SAT 92
[2024-09-25 04:27] VITALS: BP 120/70; TEMP 98.1; O2SAT 93
[2024-09-25 21:19] VITALS: BP 120/69; TEMP 98.1; O2SAT 93
[2024-09-26 03:45] VITALS: BP 139/67; TEMP 98.4; O2SAT 91
[2024-09-27 05:30] VITALS: BP 128/80; TEMP 98.2; O2SAT 91
[2024-09-27 20:13] VITALS: BP 134/72; TEMP 97.9; O2SAT 92
[2024-09-28 04:03] VITALS: BP 137/73; TEMP 97.9; O2SAT 90
[2024-09-28 09:00] VITALS: BP 135/72
[2024-09-28 12:00] VITALS: BP 140/90; TEMP 97.5; O2SAT 97
[2024-09-28 18:56] LABS: HEMATOCRIT 40.2 % (42.0-52.0); HEMOGLOBIN 13.4 g/dl (13.5-17.5); MEAN CORPUSCULAR HEMOGLOBIN 30.7 pg (27.0-33.0); MEAN CORPUSCULAR HGB CONC 33.3 g/dl (32.0-36.5); PLATELET COUNT, AUTOMATED 357 10^3/uL (150-450); RED BLOOD COUNT 4.37 10^6/uL (4.30-6.10); WHITE BLOOD COUNT 9.7 10^3/uL (4.0-10.0)
[2024-09-28 19:21] LABS: ALBUMIN 2.2 G/DL (3.2-5.2); ALKALINE PHOSPHATASE 67 U/L (40-129); ALT/SGPT 18 U/L (7.0-40); AST/SGOT 29 U/L (<34); BILIRUBIN,TOTAL 0.4 MG/DL (0.3-1.2); BLOOD UREA NITROGEN 16 MG/DL (9-23); C REACTIVE PROTEIN QUANTITATIV 0.86 MG/DL (<1.0); CALCIUM LEVEL 8.4 MG/DL (8.3-10.6); CARBON DIOXIDE LEVEL 30 MMOL/L (20-31); CHLORIDE LEVEL 106 MMOL/L (98-107); CREATININE FOR GFR 0.52 MG/DL (0.70-1.30); GLOMERULAR FILTRATION RATE > 60.0 (>42); GLUCOSE, FASTING 136 MG/DL (74-106); POTASSIUM SERUM 3.6 MMOL/L (3.5-5.1); SODIUM LEVEL 142 MMOL/L (136-145); TOTAL PROTEIN 5.3 G/DL (5.7-8.2)
[2024-09-29 03:50] VITALS: BP 132/77; TEMP 97.9; O2SAT 95
[2024-09-30 03:54] VITALS: BP 144/85; TEMP 97.5; O2SAT 91
[2024-10-01 03:32] VITALS: BP 125/75; TEMP 97.9; O2SAT 92
[2024-10-02 04:10] VITALS: BP 128/71; TEMP 97.5; O2SAT 90
[2024-10-02] MEDS ORDERED: IPRATROPIUM 0.5MG/ALBUTEROL 2.5MG INH SOL UD 3ML NEB PRN (09:30)
[2024-10-03 04:21] VITALS: BP 143/78; TEMP 97.7; O2SAT 92
[2024-10-04 03:20] VITALS: BP 141/94; TEMP 97.9; O2SAT 91
[2024-10-04 14:37] LABS: HEMATOCRIT 37.5 % (42.0-52.0); HEMOGLOBIN 12.7 g/dl (13.5-17.5); MEAN CORPUSCULAR HEMOGLOBIN 31.5 pg (27.0-33.0); MEAN CORPUSCULAR HGB CONC 33.9 g/dl (32.0-36.5); MEAN CORPUSCULAR VOLUME 93.1 fl (80.0-96.0); PLATELET COUNT, AUTOMATED 313 10^3/uL (150-450); RED BLOOD COUNT 4.03 10^6/uL (4.30-6.10); WHITE BLOOD COUNT 10.5 10^3/uL (4.0-10.0)
[2024-10-04 14:51] LABS: INR 0.96; PARTIAL THROMBOPLASTIN TIME 33.9 SECONDS (24.8-34.2); PROTHROMBIN TIME 13.1 SECONDS (12.5-14.5)
[2024-10-04 15:06] LABS: ALBUMIN 2.4 G/DL (3.2-5.2); ALKALINE PHOSPHATASE 72 U/L (40-129); ALT/SGPT 28 U/L (7.0-40); AST/SGOT 26 U/L (<34); BILIRUBIN,TOTAL 0.4 MG/DL (0.3-1.2); BLOOD UREA NITROGEN 17 MG/DL (9-23); CALCIUM LEVEL 8.7 MG/DL (8.3-10.6); CARBON DIOXIDE LEVEL 31 MMOL/L (20-31); CHLORIDE LEVEL 105 MMOL/L (98-107); CREATININE FOR GFR 0.51 MG/DL (0.70-1.30); GLOMERULAR FILTRATION RATE > 60.0 (>42); GLUCOSE, FASTING 126 MG/DL (74-106); POTASSIUM SERUM 3.7 MMOL/L (3.5-5.1); SODIUM LEVEL 142 MMOL/L (136-145); TOTAL PROTEIN 5.7 G/DL (5.7-8.2)
[2024-10-04] MEDS: NYSTATIN 100,000 UNITS/GM TOPICAL PWD 15GM TOP SCH (20:23)
[2024-10-04 21:06] VITALS: BP 124/71; TEMP 97.9; O2SAT 92
[2024-10-05 04:00] VITALS: BP 123/69; TEMP 97.7; O2SAT 92
[2024-10-05 05:24] LABS: HEMATOCRIT 36.2 % (42.0-52.0); HEMOGLOBIN 12.2 g/dl (13.5-17.5); MEAN CORPUSCULAR HEMOGLOBIN 31.6 pg (27.0-33.0); MEAN CORPUSCULAR HGB CONC 33.7 g/dl (32.0-36.5); MEAN CORPUSCULAR VOLUME 93.8 fl (80.0-96.0); PLATELET COUNT, AUTOMATED 281 10^3/uL (150-450); RED BLOOD COUNT 3.86 10^6/uL (4.30-6.10); WHITE BLOOD COUNT 11.1 10^3/uL (4.0-10.0)
[2024-10-05 05:53] LABS: ALBUMIN 2.2 G/DL (3.2-5.2); ALKALINE PHOSPHATASE 68 U/L (40-129); ALT/SGPT 24 U/L (7.0-40); AST/SGOT 21 U/L (<34); BILIRUBIN,TOTAL 0.4 MG/DL (0.3-1.2); BLOOD UREA NITROGEN 15 MG/DL (9-23); CALCIUM LEVEL 8.5 MG/DL (8.3-10.6); CARBON DIOXIDE LEVEL 27 MMOL/L (20-31); CHLORIDE LEVEL 107 MMOL/L (98-107); CREATININE FOR GFR 0.51 MG/DL (0.70-1.30); GLOMERULAR FILTRATION RATE > 60.0 (>42); GLUCOSE, FASTING 130 MG/DL (74-106); POTASSIUM SERUM 3.6 MMOL/L (3.5-5.1); SODIUM LEVEL 141 MMOL/L (136-145); TOTAL PROTEIN 5.4 G/DL (5.7-8.2)
[2024-10-05] MEDS: DOCUSATE SODIUM 100MG CAPSULE PO SCH (09:37)
[2024-10-05 12:00] VITALS: BP 135/71; TEMP 97.5; O2SAT 95
[2024-10-05] MEDS: LIDOCAINE W/EPINEPHRINE 1% 20ML VIAL SC ONE (15:39)
[2024-10-05 20:01] VITALS: BP 136/93; TEMP 98.2; O2SAT 93
[2024-10-05 20:47] LABS: HEMATOCRIT 37.1 % (42.0-52.0); HEMOGLOBIN 12.3 g/dl (13.5-17.5)
[2024-10-05 21:02] LABS: INR 0.94; PARTIAL THROMBOPLASTIN TIME 30.9 SECONDS (24.8-34.2); PROTHROMBIN TIME 12.9 SECONDS (12.5-14.5)
[2024-10-06 04:40] VITALS: BP 141/81; TEMP 97.9; O2SAT 94
[2024-10-06 05:02] LABS: BASO # 0.1 10^3/uL (0.0-0.2); BASO % 0.5 % (0.0-1.0); EOS # 0.2 10^3/uL (0.0-0.5); EOS % 2.4 % (0.0-3.0); HEMATOCRIT 34.4 % (42.0-52.0); HEMOGLOBIN 11.3 g/dl (13.5-17.5); LYMPH # 1.7 10^3/uL (1.5-5.0); LYMPH % 17.5 % (24.0-44.0); MEAN CORPUSCULAR HGB CONC 32.8 g/dl (32.0-36.5); MEAN CORPUSCULAR VOLUME 94.2 fl (80.0-96.0); MONO # 1.2 10^3/uL (0.0-0.8); MONO % 12.5 % (2.0-8.0); NEUTROPHILS # 6.4 10^3/uL (1.5-8.5); NEUTROPHILS % 66.6 % (36.0-66.0); PLATELET COUNT, AUTOMATED 280 10^3/uL (150-450); RED BLOOD COUNT 3.65 10^6/uL (4.30-6.10); WHITE BLOOD COUNT 9.6 10^3/uL (4.0-10.0)
[2024-10-06 05:36] LABS: BLOOD UREA NITROGEN 11 MG/DL (9-23); CARBON DIOXIDE LEVEL 28 MMOL/L (20-31); CHLORIDE LEVEL 105 MMOL/L (98-107); CREATININE FOR GFR 0.56 MG/DL (0.70-1.30); GLOMERULAR FILTRATION RATE > 60.0 (>42); GLUCOSE, FASTING 101 MG/DL (74-106); SODIUM LEVEL 141 MMOL/L (136-145)
[2024-10-06 12:00] VITALS: BP 136/72; TEMP 97.7; O2SAT 92
[2024-10-06 16:00] VITALS: BP 146/75; TEMP 97.7; O2SAT 95
[2024-10-06 21:00] VITALS: BP 138/65; TEMP 98.4; O2SAT 94
[2024-10-07 03:39] VITALS: BP 138/77; TEMP 98.4; O2SAT 94
[2024-10-07 04:48] LABS: BASO % 0.4 % (0.0-1.0); EOS # 0.3 10^3/uL (0.0-0.5); EOS % 2.6 % (0.0-3.0); HEMATOCRIT 35.2 % (42.0-52.0); HEMOGLOBIN 11.4 g/dl (13.5-17.5); LYMPH # 1.7 10^3/uL (1.5-5.0); LYMPH % 16.7 % (24.0-44.0); MEAN CORPUSCULAR HEMOGLOBIN 30.7 pg (27.0-33.0); MEAN CORPUSCULAR HGB CONC 32.4 g/dl (32.0-36.5); MEAN CORPUSCULAR VOLUME 94.9 fl (80.0-96.0); MONO # 1.1 10^3/uL (0.0-0.8); MONO % 10.9 % (2.0-8.0); NEUTROPHILS # 6.9 10^3/uL (1.5-8.5); NEUTROPHILS % 68.8 % (36.0-66.0); PLATELET COUNT, AUTOMATED 293 10^3/uL (150-450); RED BLOOD COUNT 3.71 10^6/uL (4.30-6.10); WHITE BLOOD COUNT 10.1 10^3/uL (4.0-10.0)
[2024-10-07 04:49] LABS: BLOOD UREA NITROGEN 8 MG/DL (9-23); CALCIUM LEVEL 8.2 MG/DL (8.3-10.6); CARBON DIOXIDE LEVEL 29 MMOL/L (20-31); CHLORIDE LEVEL 105 MMOL/L (98-107); CREATININE FOR GFR 0.49 MG/DL (0.70-1.30); GLOMERULAR FILTRATION RATE > 90.0 (>42); GLUCOSE, FASTING 150 MG/DL (74-106); POTASSIUM SERUM 3.6 MMOL/L (3.5-5.1); SODIUM LEVEL 141 MMOL/L (136-145)
[2024-10-07 18:15] VITALS: BP 137/75; TEMP 98.2; O2SAT 91
[2024-10-08 05:11] VITALS: BP 138/88; TEMP 98.1; O2SAT 93
[2024-10-08 06:43] LABS: BLOOD UREA NITROGEN 10 MG/DL (9-23); CALCIUM LEVEL 8.4 MG/DL (8.3-10.6); CARBON DIOXIDE LEVEL 30 MMOL/L (20-31); CHLORIDE LEVEL 107 MMOL/L (98-107); CREATININE FOR GFR 0.52 MG/DL (0.70-1.30); GLOMERULAR FILTRATION RATE > 90.0 (>42); GLUCOSE, FASTING 96 MG/DL (74-106); SODIUM LEVEL 144 MMOL/L (136-145)
[2024-10-08 06:46] LABS: BASO # 0.1 10^3/uL (0.0-0.2); BASO % 0.5 % (0.0-1.0); EOS # 0.3 10^3/uL (0.0-0.5); EOS % 3.1 % (0.0-3.0); HEMATOCRIT 36.1 % (42.0-52.0); HEMOGLOBIN 11.7 g/dl (13.5-17.5); LYMPH # 1.7 10^3/uL (1.5-5.0); LYMPH % 16.2 % (24.0-44.0); MEAN CORPUSCULAR HEMOGLOBIN 31.1 pg (27.0-33.0); MEAN CORPUSCULAR HGB CONC 32.4 g/dl (32.0-36.5); MONO # 1.1 10^3/uL (0.0-0.8); MONO % 10.6 % (2.0-8.0); NEUTROPHILS # 7.4 10^3/uL (1.5-8.5); NEUTROPHILS % 69.1 % (36.0-66.0); PLATELET COUNT, AUTOMATED 310 10^3/uL (150-450); RED BLOOD COUNT 3.76 10^6/uL (4.30-6.10); WHITE BLOOD COUNT 10.7 10^3/uL (4.0-10.0)
[2024-10-09 04:12] VITALS: BP 135/78; TEMP 98.1; O2SAT 92
[2024-10-10 04:49] VITALS: BP 143/86; TEMP 98.6; O2SAT 90
[2024-10-10 06:52] LABS: BASO % 0.4 % (0.0-1.0); EOS # 0.3 10^3/uL (0.0-0.5); EOS % 2.7 % (0.0-3.0); HEMATOCRIT 35.6 % (42.0-52.0); HEMOGLOBIN 11.8 g/dl (13.5-17.5); LYMPH # 1.2 10^3/uL (1.5-5.0); LYMPH % 11.9 % (24.0-44.0); MEAN CORPUSCULAR HEMOGLOBIN 30.8 pg (27.0-33.0); MEAN CORPUSCULAR HGB CONC 33.1 g/dl (32.0-36.5); MONO # 0.9 10^3/uL (0.0-0.8); MONO % 8.8 % (2.0-8.0); NEUTROPHILS # 7.5 10^3/uL (1.5-8.5); NEUTROPHILS % 75.6 % (36.0-66.0); PLATELET COUNT, AUTOMATED 331 10^3/uL (150-450); RED BLOOD COUNT 3.83 10^6/uL (4.30-6.10); WHITE BLOOD COUNT 9.9 10^3/uL (4.0-10.0)
[2024-10-10 07:00] LABS: BLOOD UREA NITROGEN 15 MG/DL (9-23); CALCIUM LEVEL 8.1 MG/DL (8.3-10.6); CARBON DIOXIDE LEVEL 28 MMOL/L (20-31); CHLORIDE LEVEL 105 MMOL/L (98-107); CREATININE FOR GFR 0.48 MG/DL (0.70-1.30); GLOMERULAR FILTRATION RATE > 90.0 (>42); GLUCOSE, FASTING 115 MG/DL (74-106); SODIUM LEVEL 140 MMOL/L (136-145)
[2024-10-10 18:57] VITALS: BP 153/85; TEMP 97.9; O2SAT 95
[2024-10-10] MEDS: SENNA 8.6 MG TAB (SENOKOT) PO SCH (21:37)
[2024-10-11 04:00] VITALS: BP 149/90; TEMP 97.9; O2SAT 95
[2024-10-11] MEDS: BISACODYL 10MG SUPP PR PRN (10:06)
[2024-10-12 04:10] VITALS: BP 120/76; TEMP 97.3; O2SAT 98
[2024-10-12 05:30] LABS: BASO % 0.2 % (0.0-1.0); HEMATOCRIT 35.8 % (42.0-52.0); HEMOGLOBIN 12.1 g/dl (13.5-17.5); LYMPH # 1.4 10^3/uL (1.5-5.0); LYMPH % 9.7 % (24.0-44.0); MEAN CORPUSCULAR HEMOGLOBIN 31.5 pg (27.0-33.0); MEAN CORPUSCULAR HGB CONC 33.8 g/dl (32.0-36.5); MEAN CORPUSCULAR VOLUME 93.2 fl (80.0-96.0); MONO # 1.2 10^3/uL (0.0-0.8); NEUTROPHILS # 11.9 10^3/uL (1.5-8.5); NEUTROPHILS % 81.7 % (36.0-66.0); PLATELET COUNT, AUTOMATED 351 10^3/uL (150-450); RED BLOOD COUNT 3.84 10^6/uL (4.30-6.10); WHITE BLOOD COUNT 14.5 10^3/uL (4.0-10.0)
[2024-10-12 05:54] LABS: BLOOD UREA NITROGEN 16 MG/DL (9-23); CALCIUM LEVEL 8.9 MG/DL (8.3-10.6); CARBON DIOXIDE LEVEL 27 MMOL/L (20-31); CHLORIDE LEVEL 104 MMOL/L (98-107); CREATININE FOR GFR 0.49 MG/DL (0.70-1.30); GLOMERULAR FILTRATION RATE > 90.0 (>42); GLUCOSE, FASTING 150 MG/DL (74-106); POTASSIUM SERUM 3.8 MMOL/L (3.5-5.1); SODIUM LEVEL 143 MMOL/L (136-145)
[2024-10-12] MEDS: FLEET ENEMA PR ONE (15:12)
[2024-10-13 03:53] VITALS: BP 104/63; TEMP 97.7; O2SAT 93
[2024-10-13 04:47] LABS: KETONE, URINE AUTO RFX NEGATIVE (NEGATIVE); LEUKOCYTE ESTERASE UR AUTO RFX NEGATIVE (NEGATIVE); MUCUS, URINE RFX SMALL (NEGATIVE); NITRITE, URINE AUTO RFX NEGATIVE (NEGATIVE); RBC, URINE AUTO RFX 45 /HPF (0-3); SQUAM EPITHELIAL CELL UR AURFX 0 /HPF (0-6); WBC, URINE AUTO RFX 5 /HPF (0-3)
[2024-10-14 03:39] VITALS: BP 119/71; TEMP 98.1; O2SAT 92
[2024-10-14 10:10] VITALS: BP 119/71
[2024-10-14] MEDS ORDERED: IPRA0.00 NEB (12:39)
[2024-10-14] MEDS ORDERED: ACET32TAB PO (12:39)
[2024-10-14] MEDS ORDERED: MOM30SS2 PO (12:39)
[2024-10-14] MEDS ORDERED: THERTAB19 PO (12:39)
[2024-10-14] MEDS ORDERED: MIRA33506 PO (12:39)
[2024-10-14] MEDS ORDERED: FOLI1TAB11 PO (12:39)
[2024-10-14] MEDS ORDERED: ATOR1TAB21 PO (12:39)
[2024-10-14] MEDS ORDERED: NYST10006 TOP (12:39)
[2024-10-14] MEDS ORDERED: OLAN5ZYD PO (12:39)
[2024-10-14] MEDS ORDERED: LIDO5TD TD (12:39)
[2024-10-14] MEDS ORDERED: COLA100C5 PO (12:39)
[2024-10-14] MEDS ORDERED: AMLO1TAB24 PO (12:39)
[2024-10-14] MEDS ORDERED: LOSA-527 PO (12:39)
[2024-10-14] MEDS ORDERED: SENO8.6T5 PO (12:39)
[2024-10-14] MEDS ORDERED: BISA10SU PR (12:39)
[2024-10-14] MEDS ORDERED: ASPI81TAEC PO (12:39)
== END 2024-10-14 15:15 | DRG 463 ==
LOC: M ED 16:46 → M ED INP 22:42 → INTOOBSV 22:42 → OBSVTOIN 22:42 → M PCU 09-04 01:50 → M MSPAV 09-10 17:28
PROVIDERS: ADMIT Student in an Organized Health Care Education/Training Program; ATTEND Internal Medicine Nephrology
PROC: 0JBQ0ZZ Excision of Right Foot Subcutaneous Tissue and Fascia, Open Approach (ICD-10-PCS; principal; 2024-10-05)
DX: M62.82 Rhabdomyolysis (principal); J10.00 Influenza due to other identified influenza virus with unspecified type of pneumonia; I63.9 Cerebral infarction, unspecified; J15.9 Unspecified bacterial pneumonia; J96.01 Acute respiratory failure with hypoxia; A41.9 Sepsis, unspecified organism; F20.0 Paranoid schizophrenia; K40.30 Unilateral inguinal hernia, with obstruction, without gangrene, not specified as recurrent; K80.00 Calculus of gallbladder with acute cholecystitis without obstruction; J44.0 Chronic obstructive pulmonary disease with (acute) lower respiratory infection; J90 Pleural effusion, not elsewhere classified; N49.2 Inflammatory disorders of scrotum; K80.20 Calculus of gallbladder without cholecystitis without obstruction; R74.01 Elevation of levels of liver transaminase levels; M79.604 Pain in right leg; M25.551 Pain in right hip; I10 Essential (primary) hypertension; E87.6 Hypokalemia; M21.371 Foot drop, right foot; L97.519 Non-pressure chronic ulcer of other part of right foot with unspecified severity; L89.210 Pressure ulcer of right hip, unstageable; R63.6 Underweight; R33.9 Retention of urine, unspecified; K59.00 Constipation, unspecified; F10.10 Alcohol abuse, uncomplicated; J98.4 Other disorders of lung; D75.1 Secondary polycythemia; Z87.891 Personal history of nicotine dependence; E87.5 Hyperkalemia

== ENCOUNTER → 2025-01-26 | Outpatient (REF) | payer OTHER, MEDICAID, MEDICARE ==
[~2025-01-26] MED LIST: ACET32TAB PO; AMLO1TAB24 PO; ASPI81TAEC PO; ATOR1TAB21 PO; BISA10SU PR; COLA100C5 PO; FOLI1TAB11 PO; IBUP200C25 PO; IPRA0.00 NEB; LIDO5TD TD; LOSA-527 PO; MIRA33506 PO; MOM30SS2 PO; NYST10006 TOP; OLAN5ZYD PO; SENN-225 PO; THERTAB19 PO
== END ==
LOC: M SFHCWOUN 13:02
PROVIDERS: ATTEND Surgery
DX: L97.514 Non-pressure chronic ulcer of other part of right foot with necrosis of bone (principal)

== ENCOUNTER → 2025-02-02 | Outpatient (REF) | payer OTHER, MEDICAID | LOC: M SFHCWOUN 17:45 | PROVIDERS: ATTEND Surgery | DX: L97.512 Non-pressure chronic ulcer of other part of right foot with fat layer exposed (principal); L97.514 Non-pressure chronic ulcer of other part of right foot with necrosis of bone ==

== ENCOUNTER → 2025-02-09 | Outpatient (CLI) | payer OTHER, MEDICAID | LOC: M RAD 09:24 | PROVIDERS: ATTEND Surgery | DX: S91.301A Unspecified open wound, right foot, initial encounter (principal); R68.89 Other general symptoms and signs; I70.235 Atherosclerosis of native arteries of right leg with ulceration of other part of foot; I70.202 Unspecified atherosclerosis of native arteries of extremities, left leg ==

== ENCOUNTER → 2025-02-11 | Outpatient (CLI) | payer OTHER, MEDICAID ==
[~2025-02-11] MED LIST changes: +ISOVUE-370 76% 100 ML VIAL As Ordered ONE
== END ==
LOC: M RAD 10:07
PROVIDERS: ATTEND Surgery Vascular Surgery
DX: I70.90 Unspecified atherosclerosis (principal); I73.9 Peripheral vascular disease, unspecified
CPT/HCPCS: 75635; 82565; Q9967

== ENCOUNTER → 2025-03-15 | Outpatient (CLI) | payer OTHER, MEDICAID ==
[~2025-03-15] MED LIST changes: -ISOVUE-370 76% 100 ML VIAL As Ordered ONE
[2025-03-15 13:31] LABS: PLATELET COUNT, AUTOMATED 467 10^3/uL (150-450)
[2025-03-15 14:02] LABS: CALCIUM LEVEL 9.4 MG/DL (8.3-10.6); CARBON DIOXIDE LEVEL 31 MMOL/L (20-31); CHLORIDE LEVEL 103 MMOL/L (98-107); CREATININE FOR GFR 0.72 MG/DL (0.70-1.30); GLOMERULAR FILTRATION RATE > 90.0 (>42); PHOSPHORUS LEVEL 4.0 MG/DL (2.4-5.1); POTASSIUM SERUM 4.1 MMOL/L (3.5-5.1); SODIUM LEVEL 140 MMOL/L (136-145)
== END ==
LOC: M LAB 12:21
PROVIDERS: ATTEND Internal Medicine Cardiovascular Disease
DX: I25.10 Atherosclerotic heart disease of native coronary artery without angina pectoris (principal); R06.02 Shortness of breath

== ENCOUNTER 2025-04-14 08:27 | Inpatient (IN) | payer OTHER, MEDICAID ==
[2025-04-14] VITALS (28 sets, daily range): BP systolic 102–151; BP diastolic 45–71; TEMP 96.9–97.2; O2SAT 100
[~2025-04-14] VITALS: Ht 167.6 cm; Wt 49.1 kg
[2025-04-14] MEDS ORDERED: ISOVUE-370 76% 100 ML VIAL As Ordered ONE (09:41)
[2025-04-14 09:50] LABS: PLATELET COUNT, AUTOMATED 295 10^3/uL (150-450)
[2025-04-14] MEDS: LIDOCAINE 2% 5 ML JELLY UROJET TOP ONE (10:15)
[2025-04-14 10:21] LABS: CK-MB VALUE MASS 4.2 NG/ML (<3.6)
[2025-04-14 10:24] LABS: ALT/SGPT 212 U/L (7.0-40); AST/SGOT 98 U/L (<34); CALCIUM LEVEL 8.4 MG/DL (8.3-10.6); CARBON DIOXIDE LEVEL 24 MMOL/L (20-31); CHLORIDE LEVEL 106 MMOL/L (98-107); CPK CREATINE PHOSPHOKINASE 156 U/L (46-171); CREATININE FOR GFR 0.82 MG/DL (0.70-1.30); GLOMERULAR FILTRATION RATE > 90.0 (>42); MB/CK RELATIVE INDEX 2.69 (< OR =4); POTASSIUM SERUM 3.1 MMOL/L (3.5-5.1); SODIUM LEVEL 147 MMOL/L (136-145)
[2025-04-14 10:29] LABS: LYMPHOCYTES 1 % (16-44); MONOCYTES 3 % (0-5); NEUTROPHILS 76 % (28-66)
[2025-04-14 10:30] LABS: DOHLE BODIES 1+; PLATELET ESTIMATE NORMAL (NORMAL)
[2025-04-14] MEDS: SODIUM CHLORIDE 0.9% 1000 ML IV STA (10:57)
[2025-04-14 12:03] LABS: CK-MB VALUE MASS 3.2 NG/ML (<3.6); KETONE, URINE AUTO RFX TRACE mg/dL (NEGATIVE); LEUKOCYTE ESTERASE UR AUTO RFX NEGATIVE (NEGATIVE); MUCUS, URINE RFX SMALL (NEGATIVE); NITRITE, URINE AUTO RFX NEGATIVE (NEGATIVE); RBC, URINE AUTO RFX 4 /HPF (0-3); SQUAM EPITHELIAL CELL UR AURFX 0 /HPF (0-6)
[2025-04-14 12:05] LABS: WBC, URINE AUTO RFX 59 /HPF (0-3)
[2025-04-14 12:07] LABS: CPK CREATINE PHOSPHOKINASE 131.0 U/L (46-171); MB/CK RELATIVE INDEX 2.44 (< OR =4)
[2025-04-14] MEDS: PIPERACILLIN/TAZOBACTAM SOD 4.5 GM in DEXTROSE 5% (D5W) ADV/MINI-BAG 50 ML IV ONE (12:39)
[2025-04-14] MEDS ORDERED: ROCURONIUM BROMIDE 50MG/5ML VIAL As Ordered ONE (12:40)
[2025-04-14] MEDS ORDERED: ONDANSETRON 4MG/2ML VIAL As Ordered ONE (12:40)
[2025-04-14] MEDS ORDERED: LIDOCAINE 2% 100 MG/5 ML SDV (FOR ANES.) As Ordered ONE (12:40)
[2025-04-14] MEDS ORDERED: SUGAMMADEX SODIUM 500 MG/5 ML VIAL As Ordered ONE (12:40)
[2025-04-14] MEDS ORDERED: dexAMETHasone 4 MG/ML 1 ML VIAL As Ordered ONE (12:40)
[2025-04-14] MEDS ORDERED: SUCCINYLCHOLINE 100MG/5ML SYRINGE As Ordered ONE (12:40)
[2025-04-14] MEDS ORDERED: MIDAZOLAM INJ 2 MG/2 ML VIAL As Ordered ONE (12:56)
[2025-04-14] MEDS ORDERED: AMLO1TAB24 PO (13:07)
[2025-04-14] MEDS ORDERED: ASPI81TA26 PO (13:07)
[2025-04-14] MEDS ORDERED: ATOR40TA75 PO (13:08)
[2025-04-14] MEDS ORDERED: FOLI1TAB11 PO (13:08)
[2025-04-14] MEDS ORDERED: LOSA25TA13 PO (13:09)
[2025-04-14] MEDS ORDERED: TAMS1CAP17 PO (13:10)
[2025-04-14] MEDS ORDERED: OLAN1TAB20 PO (13:10)
[2025-04-14] MEDS ORDERED: HOME MED LIST COMPLETE! XX SCH (13:15)
[2025-04-14] MEDS ORDERED: ETOMIDATE 20 MG/10 ML VIAL As Ordered ONE (13:26)
[2025-04-14] MEDS ORDERED: POTASSIUM CHLORIDE 10MEQ/100ML SWI As Ordered ONE (13:28)
[2025-04-14 13:33] LABS: INR 0.97
[2025-04-14] MEDS ORDERED: ESMOLOL 100 MG/10 ML VIAL As Ordered ONE (14:43)
[2025-04-14] MEDS ORDERED: NOREPINEPHRINE 4 MG/4 ML AMP As Ordered ONE (14:52)
[2025-04-14] MEDS ORDERED: FENTANYL DRIP LOCK BOX KEY 1 EACH XX PRN (16:35)
[2025-04-14] MEDS ORDERED: ACETAMINOPHEN 325 MG TAB PO PRN (16:35)
[2025-04-14] MEDS ORDERED: NOREPINEPHRINE 4 MG IN D5W 250 ML IVBAG (16 MCG/ML) As Ordered ONE (16:41)
[2025-04-14] MEDS: MIDAZOLAM INJ 2 MG/2 ML VIAL IV PRN (17:12)
[2025-04-14] MEDS: NOREPINEPHRINE 4MG IN D5 250ML 4 MG in IV 1 EA IV SCH (17:12)
[2025-04-14 17:18] LABS: ABG BASE EXCESS -6.1 (-2.0-2.0); ABG HCO3 19.7 MMOL/L (22.0-26.0); ABG O2 SATURATION 98.5 % (95.0-99.0); ABG PARTIAL PRESSURE CO2 39.7 mmHg (35.0-45.0); ABG PARTIAL PRESSURE O2 132.8 mmHg (75.0-100.0); ABG STANDARD HCO3 19.5 MMOL/L. (22.0-26.0); ABG TOTAL CO2 20.9 MMOL/L (23.0-31.0); ABG pH (ARTERIAL) 7.313 UNITS (7.350-7.450)
[2025-04-14] MEDS: fentaNYL CITRATE/NaCl 1,000 MCG in IV 1 EA IV SCH (17:38)
[2025-04-14 17:55] LABS: ALT/SGPT 116 U/L (7.0-40); AST/SGOT 55 U/L (<34); CALCIUM LEVEL 7.8 MG/DL (8.3-10.6); CARBON DIOXIDE LEVEL 20 MMOL/L (20-31); CHLORIDE LEVEL 113 MMOL/L (98-107); CREATININE FOR GFR 0.51 MG/DL (0.70-1.30); GLOMERULAR FILTRATION RATE > 90.0 (>42); MAGNESIUM LEVEL 1.7 MG/DL (1.8-2.4); POTASSIUM SERUM 2.3 MMOL/L (3.5-5.1); SODIUM LEVEL 148 MMOL/L (136-145)
[2025-04-14] MEDS: PANTOPRAZOLE 40MG VIAL IV SCH (18:18)
[2025-04-14] MEDS: KCL 20MEQ IN 100ML SWI (KRUN) 20 MEQ in IV 1 EA IV SCH (18:18)
[2025-04-14] MEDS: D5W 1,000 ML IV SCH (18:26)
[2025-04-14] MEDS: PIPERACILLIN/TAZOBACTAM SOD 4.5 GM in DEXTROSE 5% (D5W) ADV/MINI-BAG 50 ML IV SCH (18:33)
[2025-04-14] MEDS: HEPARIN SOD 5000 UNITS/ML 1 ML VIAL/SYRINGE SC SCH (21:49)
[2025-04-14] MEDS: MAG SULF 1GM/100ML (MAG RUN) 1 GM in IV 1 EA IV ONE (22:50)
[2025-04-15] VITALS (93 sets, daily range): BP systolic 86–159; BP diastolic 37–91; TEMP 96.6–99.7; O2SAT 96–100
[2025-04-15 05:28] LABS: ABG BASE EXCESS -0.7 (-2.0-2.0); ABG HCO3 21.8 MMOL/L (22.0-26.0); ABG O2 SATURATION 98.9 % (95.0-99.0); ABG PARTIAL PRESSURE CO2 28.7 mmHg (35.0-45.0); ABG PARTIAL PRESSURE O2 198.5 mmHg (75.0-100.0); ABG STANDARD HCO3 23.9 MMOL/L. (22.0-26.0); ABG TOTAL CO2 22.7 MMOL/L (23.0-31.0); ABG pH (ARTERIAL) 7.498 UNITS (7.350-7.450)
[2025-04-15 06:12] LABS: PLATELET COUNT, AUTOMATED 184 10^3/uL (150-450)
[2025-04-15 06:15] LABS: ALT/SGPT 101 U/L (7.0-40); AST/SGOT 40 U/L (<34); CALCIUM LEVEL 7.6 MG/DL (8.3-10.6); CARBON DIOXIDE LEVEL 23 MMOL/L (20-31); CHLORIDE LEVEL 110 MMOL/L (98-107); CREATININE FOR GFR 0.54 MG/DL (0.70-1.30); GLOMERULAR FILTRATION RATE > 90.0 (>42); POTASSIUM SERUM 3.2 MMOL/L (3.5-5.1); SODIUM LEVEL 144 MMOL/L (136-145)
[2025-04-15] MEDS: KCL 20MEQ IN 100ML SWI (KRUN) 20 MEQ in IV 1 EA IV SCH (06:56)
[2025-04-15] MEDS: LACTATED RINGER'S 1000 ML IV ONE (07:15)
[2025-04-15 08:07] LABS: MAGNESIUM LEVEL 2.0 MG/DL (1.8-2.4)
[2025-04-15] MEDS: LIDOCAINE 1% SDV 30 ML VIAL As Ordered ONE (11:02)
[2025-04-15 12:27] LABS: ABG BASE EXCESS -3.6 (-2.0-2.0); ABG HCO3 20.9 MMOL/L (22.0-26.0); ABG O2 SATURATION 97.4 % (95.0-99.0); ABG PARTIAL PRESSURE CO2 36.1 mmHg (35.0-45.0); ABG PARTIAL PRESSURE O2 90.0 mmHg (75.0-100.0); ABG STANDARD HCO3 21.5 MMOL/L. (22.0-26.0); ABG TOTAL CO2 22.0 MMOL/L (23.0-31.0); ABG pH (ARTERIAL) 7.380 UNITS (7.350-7.450)
[2025-04-15] MEDS: HEPARIN SOD 5000 UNITS/ML 1 ML VIAL/SYRINGE SC SCH (14:48)
[2025-04-15] MEDS: LR 1,000 ML IV ONE (16:09)
[2025-04-15] MEDS: LR 1,000 ML IV SCH (17:14)
[2025-04-16] VITALS (88 sets, daily range): BP systolic 97–167; BP diastolic 37–76; TEMP 97.5–99.7; O2SAT 88–99
[2025-04-16 05:19] LABS: ABG BASE EXCESS -2.8 (-2.0-2.0); ABG HCO3 21.0 MMOL/L (22.0-26.0); ABG O2 SATURATION 99.2 % (95.0-99.0); ABG PARTIAL PRESSURE CO2 33.4 mmHg (35.0-45.0); ABG PARTIAL PRESSURE O2 155.2 mmHg (75.0-100.0); ABG STANDARD HCO3 22.2 MMOL/L. (22.0-26.0); ABG TOTAL CO2 22.1 MMOL/L (23.0-31.0); ABG pH (ARTERIAL) 7.417 UNITS (7.350-7.450)
[2025-04-16 05:26] LABS: PLATELET COUNT, AUTOMATED 126 10^3/uL (150-450)
[2025-04-16 05:43] LABS: ALT/SGPT 62 U/L (7.0-40); AST/SGOT 23 U/L (<34); CALCIUM LEVEL 7.4 MG/DL (8.3-10.6); CARBON DIOXIDE LEVEL 25 MMOL/L (20-31); CHLORIDE LEVEL 108 MMOL/L (98-107); CREATININE FOR GFR 0.59 MG/DL (0.70-1.30); GLOMERULAR FILTRATION RATE > 90.0 (>42); MAGNESIUM LEVEL 1.6 MG/DL (1.8-2.4); POTASSIUM SERUM 3.4 MMOL/L (3.5-5.1); SODIUM LEVEL 142 MMOL/L (136-145)
[2025-04-16] MEDS ORDERED: dexmedeTOMidine 200 MCG in IV 1 EA IV SCH (08:10)
[2025-04-16] MEDS: MAG SULF 1GM/100ML (MAG RUN) 1 GM in IV 1 EA IV ONE (09:01)
[2025-04-16] MEDS: KCL 20MEQ IN 100ML SWI (KRUN) 20 MEQ in IV 1 EA IV ONE (10:41)
[2025-04-16] MEDS: ACETAMINOPHEN *IV* 1,000 MG in IV 1 EA IV PRN (13:24)
[2025-04-16] MEDS: SANTYL OINT 30GM TOP SCH (15:58)
[2025-04-16] MEDS: D5W/LR 1,000 ML IV SCH (20:09)
[2025-04-16] MEDS: ALBUTEROL SULFATE 2.5 MG/0.5 ML INH CONCENTRATE NEB SOLN NEB PRN (23:04)
[2025-04-17] VITALS (101 sets, daily range): BP systolic 63–188; BP diastolic 37–84; TEMP 97.4–99.7; O2SAT 74–100
[2025-04-17 00:08] LABS: ABG BASE EXCESS 2.3 (-2.0-2.0); ABG HCO3 27.7 MMOL/L (22.0-26.0); ABG O2 SATURATION 93.2 % (95.0-99.0); ABG PARTIAL PRESSURE CO2 46.2 mmHg (35.0-45.0); ABG PARTIAL PRESSURE O2 65.1 mmHg (75.0-100.0); ABG STANDARD HCO3 26.4 MMOL/L. (22.0-26.0); ABG TOTAL CO2 29.1 MMOL/L (23.0-31.0); ABG pH (ARTERIAL) 7.396 UNITS (7.350-7.450)
[2025-04-17] MEDS: MORPHINE 4 MG/ML 1 ML VIAL IV PRN (00:21)
[2025-04-17] MEDS: ALBUTEROL SULFATE 2.5 MG/0.5 ML INH CONCENTRATE NEB SOLN NEB SCH (01:09)
[2025-04-17] MEDS: FUROSEMIDE 100 MG/10 ML VIAL IV ONE (01:54)
[2025-04-17] MEDS ORDERED: FENTANYL DRIP LOCK BOX KEY 1 EACH XX PRN (02:25)
[2025-04-17] MEDS ORDERED: PHENYLephrine 500MCG 5ML (100MCG/ML) SYRINGE As Ordered ONE (02:35)
[2025-04-17] MEDS ORDERED: PHENYLEPHRINE 10MG/ML 1ML VIAL IV ONE (02:55)
[2025-04-17] MEDS: MAG SULF 1GM/100ML (MAG RUN) 1 GM in IV 1 EA IV ONE (02:56)
[2025-04-17] MEDS: fentaNYL CITRATE/NaCl 1,000 MCG in IV 1 EA IV SCH (02:59)
[2025-04-17] MEDS ORDERED: CISATRACURIUM 10 MG/ML 20 ML VIAL As Ordered ONE (03:18)
[2025-04-17 03:24] LABS: ABG BASE EXCESS 1.4 (-2.0-2.0); ABG HCO3 26.2 MMOL/L (22.0-26.0); ABG O2 SATURATION 87.5 % (95.0-99.0); ABG PARTIAL PRESSURE CO2 42.3 mmHg (35.0-45.0); ABG PARTIAL PRESSURE O2 50.6 mmHg (75.0-100.0); ABG STANDARD HCO3 25.4 MMOL/L. (22.0-26.0); ABG TOTAL CO2 27.5 MMOL/L (23.0-31.0); ABG pH (ARTERIAL) 7.410 UNITS (7.350-7.450)
[2025-04-17] MEDS: dexmedeTOMidine 200 MCG in IV 1 EA IV SCH (03:24)
[2025-04-17] MEDS ORDERED: CETACAINE SPRAY 5 GM As Ordered ONE (03:26)
[2025-04-17] MEDS: ETOMIDATE 20 MG/10 ML VIAL IV ONE (03:47)
[2025-04-17] MEDS: ROCURONIUM BROMIDE 50MG/5ML VIAL IV ONE (03:48)
[2025-04-17] MEDS: MIDAZOLAM INJ 2 MG/2 ML VIAL IV STA (03:53)
[2025-04-17] MEDS: CISATRACURIUM 10 MG/ML 20 ML VIAL IV ONE (04:08)
[2025-04-17] MEDS: CETACAINE SPRAY 5 GM TOP ONE (04:09)
[2025-04-17] MEDS: PHENYLephrine 500MCG 5ML (100MCG/ML) SYRINGE IV ONE (04:09)
[2025-04-17] MEDS: KCL 20MEQ IN 100ML SWI (KRUN) 20 MEQ in IV 1 EA IV ONE (04:37)
[2025-04-17 05:01] LABS: ABG BASE EXCESS -2.8 (-2.0-2.0); ABG HCO3 24.0 MMOL/L (22.0-26.0); ABG O2 SATURATION 95.2 % (95.0-99.0); ABG PARTIAL PRESSURE CO2 49.6 mmHg (35.0-45.0); ABG PARTIAL PRESSURE O2 81.1 mmHg (75.0-100.0); ABG STANDARD HCO3 22.1 MMOL/L. (22.0-26.0); ABG TOTAL CO2 25.5 MMOL/L (23.0-31.0); ABG pH (ARTERIAL) 7.303 UNITS (7.350-7.450)
[2025-04-17 05:57] LABS: PLATELET COUNT, AUTOMATED 140 10^3/uL (150-450)
[2025-04-17 06:29] LABS: ALT/SGPT 50 U/L (7.0-40); AST/SGOT 24 U/L (<34); CALCIUM LEVEL 7.4 MG/DL (8.3-10.6); CARBON DIOXIDE LEVEL 25 MMOL/L (20-31); CHLORIDE LEVEL 106 MMOL/L (98-107); CREATININE FOR GFR 0.59 MG/DL (0.70-1.30); GLOMERULAR FILTRATION RATE > 90.0 (>42); MAGNESIUM LEVEL 2.1 MG/DL (1.8-2.4); POTASSIUM SERUM 4.0 MMOL/L (3.5-5.1); SODIUM LEVEL 144 MMOL/L (136-145)
[2025-04-17] MEDS: LR 1,000 ML IV ONE (08:12)
[2025-04-17] MEDS: SODIUM CHLORIDE HYPERTONIC 3% 4ML NEB SOL INH SCH (08:57)
[2025-04-17] MEDS ORDERED: VANCOMYCIN HCL 750 MG in IV FLUID PLACE HOLDER 1 EA IV ONE (09:05)
[2025-04-17 09:22] LABS: ABG BASE EXCESS 0.0 (-2.0-2.0); ABG HCO3 23.8 MMOL/L (22.0-26.0); ABG O2 SATURATION 98.0 % (95.0-99.0); ABG PARTIAL PRESSURE CO2 36.2 mmHg (35.0-45.0); ABG PARTIAL PRESSURE O2 99.2 mmHg (75.0-100.0); ABG STANDARD HCO3 24.5 MMOL/L. (22.0-26.0); ABG TOTAL CO2 24.9 MMOL/L (23.0-31.0); ABG pH (ARTERIAL) 7.436 UNITS (7.350-7.450)
[2025-04-17] MEDS: VANCOMYCIN HCL 1,000 MG, VIAL MATE ADAPTER 1 EACH in NS 250 ML IV ONE (11:38)
[2025-04-17] MEDS: VANCOMYCIN HCL 750 MG, VIAL MATE ADAPTER 1 EACH in NS 250 ML IV SCH (20:46)
[2025-04-17] MEDS: MIDAZOLAM INJ 2 MG/2 ML VIAL IV ONE (22:25)
[2025-04-18] VITALS (94 sets, daily range): BP systolic 65–154; BP diastolic 37–75; TEMP 97.7–98.7; O2SAT 94–100
[2025-04-18 07:13] LABS: PLATELET COUNT, AUTOMATED 108 10^3/uL (150-450)
[2025-04-18 07:38] LABS: VANCOMYCIN LEVEL TROUGH 11.0 UG/ML (10.0-20.0)
[2025-04-18 07:55] LABS: ALT/SGPT 32 U/L (7.0-40); AST/SGOT 12 U/L (<34); CALCIUM LEVEL 6.3 MG/DL (8.3-10.6); CARBON DIOXIDE LEVEL 32 MMOL/L (20-31); CHLORIDE LEVEL 106 MMOL/L (98-107); CREATININE FOR GFR 0.57 MG/DL (0.70-1.30); GLOMERULAR FILTRATION RATE > 90.0 (>42); MAGNESIUM LEVEL 1.8 MG/DL (1.8-2.4); POTASSIUM SERUM 2.6 MMOL/L (3.5-5.1); SODIUM LEVEL 146 MMOL/L (136-145)
[2025-04-18] MEDS: KCL 20MEQ IN 100ML SWI (KRUN) 20 MEQ in IV 1 EA IV SCH (08:14)
[2025-04-18 08:36] LABS: ABG BASE EXCESS 4.8 (-2.0-2.0); ABG HCO3 28.6 MMOL/L (22.0-26.0); ABG O2 SATURATION 96.0 % (95.0-99.0); ABG PARTIAL PRESSURE CO2 39.5 mmHg (35.0-45.0); ABG PARTIAL PRESSURE O2 78.3 mmHg (75.0-100.0); ABG STANDARD HCO3 28.7 MMOL/L. (22.0-26.0); ABG TOTAL CO2 29.8 MMOL/L (23.0-31.0); ABG pH (ARTERIAL) 7.478 UNITS (7.350-7.450)
[2025-04-18] MEDS: NS 0.45% 1,000 ML IV SCH (09:33)
[2025-04-18] MEDS: MIDAZOLAM 100MG/100ML-0.9%NACL 100 MG in IV 1 EA IV SCH (09:35)
[2025-04-18] MEDS ORDERED: SODIUM CHLORIDE 0.9% INJ 10 ML SYR IV PRN (11:20)
[2025-04-18] MEDS: NOREPINEPHRINE 4MG IN D5 250ML 4 MG in IV 1 EA IV SCH (12:10)
[2025-04-18] MEDS: LR 1,000 ML IV ONE (12:11)
[2025-04-18 14:26] LABS: PHOSPHORUS LEVEL 1.2 MG/DL (2.4-5.1)
[2025-04-18 14:59] LABS: CALCIUM LEVEL 6.6 MG/DL (8.3-10.6); CARBON DIOXIDE LEVEL 28 MMOL/L (20-31); CHLORIDE LEVEL 107 MMOL/L (98-107); CREATININE FOR GFR 0.51 MG/DL (0.70-1.30); GLOMERULAR FILTRATION RATE > 90.0 (>42); POTASSIUM SERUM 3.5 MMOL/L (3.5-5.1); SODIUM LEVEL 145 MMOL/L (136-145)
[2025-04-18] MEDS: SODIUM CHLORIDE 0.9% INJ 10 ML SYR IV SCH (16:42)
[2025-04-18] MEDS: POTASSIUM PHOSPHATE INJ 30 MMOL in D5W 500 ML IV ONE (16:43)
[2025-04-18] MEDS: cefTRIAXone SOD 2 GM in DEXTROSE 5% (D5W) ADV/MINI-BAG 50 ML IV SCH (17:55)
[2025-04-18] MEDS ORDERED: ENOXAPARIN 40 MG/0.4 ML SYRINGE (J1650 PER 10MG) SC SCH (18:00)
[2025-04-18] MEDS: ENOXAPARIN 30 MG/0.3 ML SYRINGE (J1650 PER 10MG) SC SCH (20:47)
[2025-04-19] VITALS (94 sets, daily range): BP systolic 74–151; BP diastolic 46–72; TEMP 97.8–98.9; O2SAT 95–100
[2025-04-19 06:21] LABS: ABG BASE EXCESS 1.8 (-2.0-2.0); ABG HCO3 25.8 MMOL/L (22.0-26.0); ABG O2 SATURATION 98.3 % (95.0-99.0); ABG PARTIAL PRESSURE CO2 38.3 mmHg (35.0-45.0); ABG PARTIAL PRESSURE O2 110.7 mmHg (75.0-100.0); ABG STANDARD HCO3 26.1 MMOL/L. (22.0-26.0); ABG TOTAL CO2 27.0 MMOL/L (23.0-31.0); ABG pH (ARTERIAL) 7.447 UNITS (7.350-7.450)
[2025-04-19 06:34] LABS: PLATELET COUNT, AUTOMATED 119 10^3/uL (150-450)
[2025-04-19 07:03] LABS: ALT/SGPT 27 U/L (7.0-40); AST/SGOT 18 U/L (<34); CALCIUM LEVEL 6.2 MG/DL (8.3-10.6); CARBON DIOXIDE LEVEL 28 MMOL/L (20-31); CHLORIDE LEVEL 105 MMOL/L (98-107); CREATININE FOR GFR 0.44 MG/DL (0.70-1.30); GLOMERULAR FILTRATION RATE > 90.0 (>42); POTASSIUM SERUM 3.2 MMOL/L (3.5-5.1); SODIUM LEVEL 143 MMOL/L (136-145)
[2025-04-19] MEDS: VANCOMYCIN HCL 1,000 MG, VIAL MATE ADAPTER 1 EACH in NS 250 ML IV SCH (07:54)
[2025-04-19] MEDS: KCL 20MEQ IN 100ML SWI (KRUN) 20 MEQ in IV 1 EA IV SCH (08:05)
[2025-04-19] MEDS: POTASSIUM PHOSPHATE INJ 30 MMOL in D5W 500 ML IV ONE (09:37)
[2025-04-19] MEDS: MAG SULF 1GM/100ML (MAG RUN) 1 GM in IV 1 EA IV SCH (09:42)
[2025-04-19] MEDS: dexmedeTOMidine 200 MCG in IV 1 EA IV SCH (09:46)
[2025-04-20] VITALS (43 sets, daily range): BP systolic 94–155; BP diastolic 50–74; TEMP 97.9–100; O2SAT 92–100
[2025-04-20 05:50] LABS: PLATELET COUNT, AUTOMATED 123 10^3/uL (150-450)
[2025-04-20 06:00] LABS: ABG BASE EXCESS 2.5 (-2.0-2.0); ABG HCO3 26.2 MMOL/L (22.0-26.0); ABG O2 SATURATION 98.6 % (95.0-99.0); ABG PARTIAL PRESSURE CO2 37.4 mmHg (35.0-45.0); ABG PARTIAL PRESSURE O2 116.7 mmHg (75.0-100.0); ABG STANDARD HCO3 26.7 MMOL/L. (22.0-26.0); ABG TOTAL CO2 27.4 MMOL/L (23.0-31.0); ABG pH (ARTERIAL) 7.464 UNITS (7.350-7.450)
[2025-04-20 06:24] LABS: ALT/SGPT 22 U/L (7.0-40); AST/SGOT 20 U/L (<34); CALCIUM LEVEL 6.1 MG/DL (8.3-10.6); CARBON DIOXIDE LEVEL 26 MMOL/L (20-31); CHLORIDE LEVEL 105 MMOL/L (98-107); CREATININE FOR GFR 0.39 MG/DL (0.70-1.30); GLOMERULAR FILTRATION RATE > 90.0 (>42); POTASSIUM SERUM 3.6 MMOL/L (3.5-5.1); SODIUM LEVEL 141 MMOL/L (136-145)
[2025-04-20] MEDS: POTASSIUM PHOSPHATE INJ 30 MMOL in D5W 500 ML IV ONE (12:13)
[2025-04-20] MEDS ORDERED: VASOPRESSIN INJ 20UNITS/ML 1ML VIAL As Ordered ONE (14:28)
[2025-04-20] MEDS: LIDOCAINE W/EPINEPHrine 1% 20 ML VIAL As Ordered ONE (14:37)
[2025-04-20] MEDS: PHENYLEPHRINE REG/STR 0.5% NASAL SPRAY 15 ML As Ordered ONE (14:56)
[2025-04-20] MEDS: MORPHINE 4 MG/ML 1 ML VIAL IV PRN (16:31)
[2025-04-20] MEDS: ENOXAPARIN 30 MG/0.3 ML SYRINGE (J1650 PER 10MG) SC ONE (16:31)
[2025-04-20 17:55] LABS: MAGNESIUM LEVEL 2.0 MG/DL (1.8-2.4); PHOSPHORUS LEVEL 3.0 MG/DL (2.4-5.1); POTASSIUM SERUM 4.3 MMOL/L (3.5-5.1)
[2025-04-21] VITALS (32 sets, daily range): BP systolic 101–134; BP diastolic 52–65; TEMP 97.8–99.4; O2SAT 99–100
[2025-04-21 05:13] LABS: PLATELET COUNT, AUTOMATED 155 10^3/uL (150-450)
[2025-04-21 05:35] LABS: ALT/SGPT 22 U/L (7.0-40); AST/SGOT 27 U/L (<34); CALCIUM LEVEL 6.6 MG/DL (8.3-10.6); CARBON DIOXIDE LEVEL 24 MMOL/L (20-31); CHLORIDE LEVEL 106 MMOL/L (98-107); CREATININE FOR GFR 0.57 MG/DL (0.70-1.30); GLOMERULAR FILTRATION RATE > 90.0 (>42); MAGNESIUM LEVEL 2.1 MG/DL (1.8-2.4); PHOSPHORUS LEVEL 2.2 MG/DL (2.4-5.1); POTASSIUM SERUM 4.1 MMOL/L (3.5-5.1); SODIUM LEVEL 142 MMOL/L (136-145)
[2025-04-21] MEDS: CALCIUM GLUCONATE 1,000 MG in DEXTROSE 5% (D5W) MINI-BAG PLU 100 ML IV SCH (09:20)
[2025-04-21] MEDS: ENOXAPARIN 30 MG/0.3 ML SYRINGE (J1650 PER 10MG) SC SCH (09:58)
[2025-04-21] MEDS: SODIUM PHOSPHATE INJ 30 MMOL in D5W 500 ML IV ONE (10:04)
[2025-04-21] MEDS: IBUPROFEN 400 MG TAB PO PRN (15:31)
[2025-04-21 19:19] LABS: MAGNESIUM LEVEL 2.1 MG/DL (1.8-2.4); PHOSPHORUS LEVEL 2.9 MG/DL (2.4-5.1)
[2025-04-21] MEDS: SCOPOLAMINE 1MG TRANSDERMAL PATCH TOP ONE (23:15)
[2025-04-22] VITALS (27 sets, daily range): BP systolic 103–138; BP diastolic 54–64; TEMP 97.2–98.7; O2SAT 100
[2025-04-22 04:49] LABS: PLATELET COUNT, AUTOMATED 170 10^3/uL (150-450)
[2025-04-22 05:15] LABS: ALT/SGPT 21 U/L (7.0-40); AST/SGOT 23 U/L (<34); CALCIUM LEVEL 7.1 MG/DL (8.3-10.6); CARBON DIOXIDE LEVEL 26 MMOL/L (20-31); CHLORIDE LEVEL 105 MMOL/L (98-107); CREATININE FOR GFR 0.40 MG/DL (0.70-1.30); GLOMERULAR FILTRATION RATE > 90.0 (>42); MAGNESIUM LEVEL 2.0 MG/DL (1.8-2.4); PHOSPHORUS LEVEL 2.5 MG/DL (2.4-5.1); POTASSIUM SERUM 3.1 MMOL/L (3.5-5.1); SODIUM LEVEL 142 MMOL/L (136-145)
[2025-04-22] MEDS: KCL 10MEQ/100ML SWI (KRUN) 10 MEQ in IV 1 EA IV SCH (06:25)
[2025-04-22] MEDS ORDERED: KCL 20MEQ IN 100ML SWI (KRUN) 20 MEQ in IV 1 EA IV SCH (08:00)
[2025-04-22] MEDS ORDERED: ENOXAPARIN 40 MG/0.4 ML SYRINGE (J1650 PER 10MG) SC SCH (09:00)
[2025-04-22] MEDS: KCL 20MEQ IN 100ML SWI (KRUN) 20 MEQ in IV 1 EA IV SCH (10:03)
[2025-04-22] MEDS ORDERED: NOREPINEPHRINE 4MG IN D5 250ML 4 MG in IV 1 EA IV SCH (10:45)
[2025-04-22] MEDS: KETAMINE HCL 200 MG/20 ML VIAL IV ONE ×3 (11:44→12:34)
[2025-04-22] MEDS ORDERED: IPRATROPIUM 0.5 MG/ALBUTEROL 2.5 MG INH SOL UD 3 ML NEB PRN ×2 (11:50→18:15)
[2025-04-22] MEDS: D5W/LR 1,000 ML IV SCH (21:51)
[2025-04-22 22:26] LABS: CALCIUM LEVEL 7.3 MG/DL (8.3-10.6); CARBON DIOXIDE LEVEL 22 MMOL/L (20-31); CHLORIDE LEVEL 108 MMOL/L (98-107); CREATININE FOR GFR 0.43 MG/DL (0.70-1.30); GLOMERULAR FILTRATION RATE > 90.0 (>42); POTASSIUM SERUM 4.0 MMOL/L (3.5-5.1); SODIUM LEVEL 144 MMOL/L (136-145)
[2025-04-23] VITALS (30 sets, daily range): BP systolic 112–143; BP diastolic 55–64; TEMP 97.6–98.8; O2SAT 100
[2025-04-23 05:44] LABS: ALT/SGPT 18 U/L (7.0-40); AST/SGOT 21 U/L (<34); CALCIUM LEVEL 7.0 MG/DL (8.3-10.6); CARBON DIOXIDE LEVEL 22 MMOL/L (20-31); CHLORIDE LEVEL 109 MMOL/L (98-107); CREATININE FOR GFR 0.36 MG/DL (0.70-1.30); GLOMERULAR FILTRATION RATE > 90.0 (>42); MAGNESIUM LEVEL 1.7 MG/DL (1.8-2.4); PHOSPHORUS LEVEL 1.9 MG/DL (2.4-5.1); POTASSIUM SERUM 3.8 MMOL/L (3.5-5.1); SODIUM LEVEL 143 MMOL/L (136-145)
[2025-04-23 06:22] LABS: PLATELET COUNT, AUTOMATED 193 10^3/uL (150-450)
[2025-04-23 06:56] LABS: ALT/SGPT 20 U/L (7.0-40); AST/SGOT 23 U/L (<34); CALCIUM LEVEL 7.1 MG/DL (8.3-10.6); CARBON DIOXIDE LEVEL 25 MMOL/L (20-31); CHLORIDE LEVEL 107 MMOL/L (98-107); CREATININE FOR GFR 0.39 MG/DL (0.70-1.30); GLOMERULAR FILTRATION RATE > 90.0 (>42); MAGNESIUM LEVEL 1.9 MG/DL (1.8-2.4); POTASSIUM SERUM 3.6 MMOL/L (3.5-5.1); SODIUM LEVEL 140 MMOL/L (136-145)
[2025-04-23] MEDS: SODIUM CHLORIDE HYPERTONIC 3% 4ML NEB SOL INH SCH (08:26)
[2025-04-23] MEDS: ALBUTEROL SULFATE 2.5 MG/0.5 ML INH CONCENTRATE NEB SOLN NEB SCH (08:26)
[2025-04-23] MEDS: ENOXAPARIN 30 MG/0.3 ML SYRINGE (J1650 PER 10MG) SC SCH (09:58)
[2025-04-23] MEDS: FAT EMULSION IV 125 ML IV ONE (17:48)
[2025-04-23] MEDS: AMINO AC/ELECTROLYTE/DEX/CALC 1,000 ML IV SCH (17:48)
[2025-04-23] MEDS: INSULIN LISPRO (NovoLOG) PER UNIT SC SCH (17:50)
[2025-04-24] VITALS (23 sets, daily range): BP systolic 115–158; BP diastolic 57–72; TEMP 97.7–98.6; O2SAT 97–100
[2025-04-24 05:47] LABS: PLATELET COUNT, AUTOMATED 258 10^3/uL (150-450)
[2025-04-24 06:08] LABS: ALT/SGPT 17 U/L (7.0-40); AST/SGOT 18 U/L (<34); CALCIUM LEVEL 7.4 MG/DL (8.3-10.6); CARBON DIOXIDE LEVEL 25 MMOL/L (20-31); CHLORIDE LEVEL 107 MMOL/L (98-107); CREATININE FOR GFR 0.38 MG/DL (0.70-1.30); GLOMERULAR FILTRATION RATE > 90.0 (>42); MAGNESIUM LEVEL 1.9 MG/DL (1.8-2.4); PHOSPHORUS LEVEL 2.2 MG/DL (2.4-5.1); POTASSIUM SERUM 3.6 MMOL/L (3.5-5.1); SODIUM LEVEL 140 MMOL/L (136-145)
[2025-04-24] MEDS: CALCIUM GLUCONATE 1,000 MG in DEXTROSE 5% (D5W) MINI-BAG PLU 100 ML IV ONE (08:38)
[2025-04-24] MEDS: POTASSIUM PHOSPHATE INJ 30 MMOL in D5W 500 ML IV ONE (08:52)
[2025-04-24] MEDS: AMINO AC/ELECTROLYTE/DEX/CALC 1,000 ML IV SCH (17:58)
[2025-04-24] MEDS: FAT EMULSION IV 125 ML IV ONE (17:58)
[2025-04-24] MEDS ORDERED: INSULIN LISPRO (NovoLOG) PER UNIT SC SCH (18:00)
[2025-04-25] VITALS (19 sets, daily range): BP systolic 119–148; BP diastolic 56–81; TEMP 98–99.3; O2SAT 96–99
[2025-04-25 04:48] LABS: ALT/SGPT 15 U/L (7.0-40); AST/SGOT 16 U/L (<34); CALCIUM LEVEL 7.4 MG/DL (8.3-10.6); CARBON DIOXIDE LEVEL 24 MMOL/L (20-31); CHLORIDE LEVEL 105 MMOL/L (98-107); CREATININE FOR GFR 0.42 MG/DL (0.70-1.30); GLOMERULAR FILTRATION RATE > 90.0 (>42); MAGNESIUM LEVEL 1.8 MG/DL (1.8-2.4); PHOSPHORUS LEVEL 2.2 MG/DL (2.4-5.1); POTASSIUM SERUM 3.8 MMOL/L (3.5-5.1); SODIUM LEVEL 139 MMOL/L (136-145)
[2025-04-25] MEDS: POTASSIUM PHOSPHATE INJ 30 MMOL in D5W 500 ML IV ONE (09:43)
[2025-04-25] MEDS: IBUPROFEN 400 MG TAB PEG PRN (09:45)
[2025-04-25] MEDS: MULTIVITAMIN -ADULT INJECTION 10 ML, ZINC/COPPER/MANGANESE/SELENIUM 1 ML in AMINO AC/EL... IV SCH (17:45)
[2025-04-25] MEDS: FAT EMULSION IV 125 ML IV ONE (17:45)
[2025-04-25] MEDS: INSULIN LISPRO (NovoLOG) PER UNIT SC SCH (17:46)
[2025-04-26] VITALS (19 sets, daily range): BP systolic 99–156; BP diastolic 56–73; TEMP 97.9–99.6; O2SAT 95–99
[2025-04-26 04:48] LABS: PLATELET COUNT, AUTOMATED 293 10^3/uL (150-450)
[2025-04-26 05:17] LABS: ALT/SGPT 15 U/L (7.0-40); AST/SGOT 16 U/L (<34); CALCIUM LEVEL 7.4 MG/DL (8.3-10.6); CARBON DIOXIDE LEVEL 25 MMOL/L (20-31); CHLORIDE LEVEL 103 MMOL/L (98-107); CREATININE FOR GFR 0.38 MG/DL (0.70-1.30); GLOMERULAR FILTRATION RATE > 90.0 (>42); MAGNESIUM LEVEL 1.9 MG/DL (1.8-2.4); PHOSPHORUS LEVEL 2.5 MG/DL (2.4-5.1); POTASSIUM SERUM 3.8 MMOL/L (3.5-5.1); SODIUM LEVEL 136 MMOL/L (136-145)
[2025-04-26] MEDS: FAT EMULSION IV 250 ML IV ONE (17:15)
[2025-04-26] MEDS: AMINO AC/ELECTROLYTE/DEX/CALC 1,000 ML IV SCH (17:15)
[2025-04-26] MEDS: INSULIN LISPRO (NovoLOG) PER UNIT SC SCH (17:16)
[2025-04-26] MEDS: LR 1,000 ML IV SCH (17:19)
[2025-04-27] VITALS (25 sets, daily range): BP systolic 101–136; BP diastolic 51–62; TEMP 97.4–98.3; O2SAT 90–100
[2025-04-27 05:06] LABS: ALT/SGPT 13 U/L (7.0-40); AST/SGOT 14 U/L (<34); CALCIUM LEVEL 7.4 MG/DL (8.3-10.6); CARBON DIOXIDE LEVEL 25 MMOL/L (20-31); CHLORIDE LEVEL 101 MMOL/L (98-107); CREATININE FOR GFR 0.37 MG/DL (0.70-1.30); GLOMERULAR FILTRATION RATE > 90.0 (>42); MAGNESIUM LEVEL 1.8 MG/DL (1.8-2.4); PHOSPHORUS LEVEL 2.7 MG/DL (2.4-5.1); POTASSIUM SERUM 3.5 MMOL/L (3.5-5.1); SODIUM LEVEL 134 MMOL/L (136-145)
[2025-04-27] MEDS: FAT EMULSION IV 250 ML IV ONE (17:35)
[2025-04-27] MEDS: MULTIVITAMIN -ADULT INJECTION 10 ML, ZINC/COPPER/MANGANESE/SELENIUM 1 ML in AMINO AC/EL... IV SCH (17:35)
[2025-04-27] MEDS: INSULIN LISPRO (NovoLOG) PER UNIT SC SCH (18:00)
[2025-04-28] VITALS (32 sets, daily range): BP systolic 98–142; BP diastolic 52–72; TEMP 97.7–98.3; O2SAT 87–100
[2025-04-28 06:03] LABS: BASO # 0.0 10^3/uL (0.0-0.2); BASO % 0.2 % (0.0-1.0); EOS # 0.1 10^3/uL (0.0-0.5); EOS % 0.5 % (0.0-3.0); LYMPH # 0.6 10^3/uL (1.5-5.0); LYMPH % 5.0 % (24.0-44.0); MONO # 1.0 10^3/uL (0.0-0.8); MONO % 7.8 % (2.0-8.0); NEUTROPHILS # 10.8 10^3/uL (1.5-8.5); NEUTROPHILS % 85.9 % (36.0-66.0); PLATELET COUNT, AUTOMATED 327 10^3/uL (150-450)
[2025-04-28 06:51] LABS: ALT/SGPT 13 U/L (7.0-40); AST/SGOT 14 U/L (<34); CALCIUM LEVEL 7.6 MG/DL (8.3-10.6); CARBON DIOXIDE LEVEL 26 MMOL/L (20-31); CHLORIDE LEVEL 101 MMOL/L (98-107); CREATININE FOR GFR 0.38 MG/DL (0.70-1.30); GLOMERULAR FILTRATION RATE > 90.0 (>42); MAGNESIUM LEVEL 1.9 MG/DL (1.8-2.4); PHOSPHORUS LEVEL 3.0 MG/DL (2.4-5.1); POTASSIUM SERUM 3.7 MMOL/L (3.5-5.1); SODIUM LEVEL 134 MMOL/L (136-145)
[2025-04-28] MEDS ORDERED: GASTROGRAFIN SOLUTION 30 ML As Ordered ONE (10:13)
[2025-04-28] MEDS: AMINO AC/ELECTROLYTE/DEX/CALC 2,000 ML IV SCH (17:34)
[2025-04-28] MEDS: FAT EMULSION IV 250 ML IV ONE (17:34)
[2025-04-28] MEDS: LR 1,000 ML IV SCH (18:59)
[2025-04-29] VITALS (28 sets, daily range): BP systolic 117–152; BP diastolic 58–90; TEMP 97.8–98.9; O2SAT 95–100
[2025-04-29 05:06] LABS: BASO # 0.0 10^3/uL (0.0-0.2); BASO % 0.2 % (0.0-1.0); EOS # 0.1 10^3/uL (0.0-0.5); EOS % 0.5 % (0.0-3.0); LYMPH # 0.8 10^3/uL (1.5-5.0); LYMPH % 5.4 % (24.0-44.0); MONO # 1.0 10^3/uL (0.0-0.8); MONO % 6.6 % (2.0-8.0); NEUTROPHILS # 12.8 10^3/uL (1.5-8.5); NEUTROPHILS % 87.0 % (36.0-66.0); PLATELET COUNT, AUTOMATED 396 10^3/uL (150-450)
[2025-04-29 05:29] LABS: ALT/SGPT 16 U/L (7.0-40); AST/SGOT 16 U/L (<34); CALCIUM LEVEL 7.4 MG/DL (8.3-10.6); CARBON DIOXIDE LEVEL 27 MMOL/L (20-31); CHLORIDE LEVEL 100 MMOL/L (98-107); CREATININE FOR GFR 0.43 MG/DL (0.70-1.30); GLOMERULAR FILTRATION RATE > 90.0 (>42); PHOSPHORUS LEVEL 3.0 MG/DL (2.4-5.1); POTASSIUM SERUM 3.7 MMOL/L (3.5-5.1); SODIUM LEVEL 136 MMOL/L (136-145); TRIGLYCERIDES LEVEL 72 MG/DL (<150)
[2025-04-29] MEDS: LR 1,000 ML IV SCH (08:03)
[2025-04-29] MEDS: LIDOCAINE 1% MDV 20 ML VIAL SC STA (11:02)
[2025-04-29] MEDS: cefTRIAXone SOD 2 GM in DEXTROSE 5% (D5W) ADV/MINI-BAG 50 ML IV SCH (11:19)
[2025-04-29] MEDS: metroNIDAZOLE 500 MG in IV 1 EA IV SCH (11:55)
[2025-04-29] MEDS ORDERED: DEXTROSE 50% 50 ML SYRINGE IV PRN (13:35)
[2025-04-29] MEDS ORDERED: GLUCOSE 4 GM CHEW PO PRN (13:35)
[2025-04-29] MEDS ORDERED: GLUCAGON INJ 1 MG VIAL SC PRN (13:35)
[2025-04-29] MEDS: INSULIN LISPRO (NovoLOG) PER UNIT SC SCH (17:17)
[2025-04-29] MEDS: FAT EMULSION IV 250 ML IV ONE (17:18)
[2025-04-29] MEDS: MULTIVITAMIN -ADULT INJECTION 10 ML, ZINC/COPPER/MANGANESE/SELENIUM 1 ML in AMINO AC/EL... IV SCH (17:18)
[2025-04-30] VITALS (19 sets, daily range): BP systolic 125–162; BP diastolic 61–83; TEMP 97.8–98.3; O2SAT 95–99
[2025-04-30 04:53] LABS: BASO # 0.0 10^3/uL (0.0-0.2); BASO % 0.3 % (0.0-1.0); EOS # 0.1 10^3/uL (0.0-0.5); EOS % 0.6 % (0.0-3.0); LYMPH # 0.6 10^3/uL (1.5-5.0); LYMPH % 5.2 % (24.0-44.0); MONO # 0.8 10^3/uL (0.0-0.8); MONO % 6.8 % (2.0-8.0); NEUTROPHILS # 10.0 10^3/uL (1.5-8.5); NEUTROPHILS % 86.8 % (36.0-66.0); PLATELET COUNT, AUTOMATED 359 10^3/uL (150-450)
[2025-04-30 05:23] LABS: ALT/SGPT 17 U/L (7.0-40); AST/SGOT 17 U/L (<34); CALCIUM LEVEL 7.4 MG/DL (8.3-10.6); CARBON DIOXIDE LEVEL 28 MMOL/L (20-31); CHLORIDE LEVEL 102 MMOL/L (98-107); CREATININE FOR GFR 0.38 MG/DL (0.70-1.30); GLOMERULAR FILTRATION RATE > 90.0 (>42); PHOSPHORUS LEVEL 2.8 MG/DL (2.4-5.1); POTASSIUM SERUM 3.5 MMOL/L (3.5-5.1); SODIUM LEVEL 138 MMOL/L (136-145)
[2025-04-30] MEDS: LR 1,000 ML IV SCH (08:49)
[2025-04-30] MEDS: MAG SULF 1GM/100ML (MAG RUN) 1 GM in IV 1 EA IV ONE (10:45)
[2025-04-30] MEDS: INSULIN LISPRO (NovoLOG) PER UNIT SC SCH (17:59)
[2025-04-30] MEDS: AMINO AC/ELECTROLYTE/DEX/CALC 2,000 ML IV SCH (17:59)
[2025-04-30] MEDS: FAT EMULSION IV 250 ML IV ONE (18:00)
[2025-05-01] VITALS (19 sets, daily range): BP systolic 115–162; BP diastolic 57–71; TEMP 97–98.7; O2SAT 95–100
[2025-05-01 08:13] LABS: BASO # 0.0 10^3/uL (0.0-0.2); BASO % 0.4 % (0.0-1.0); EOS # 0.1 10^3/uL (0.0-0.5); EOS % 1.1 % (0.0-3.0); LYMPH # 0.9 10^3/uL (1.5-5.0); LYMPH % 9.8 % (24.0-44.0); MONO # 0.7 10^3/uL (0.0-0.8); MONO % 7.4 % (2.0-8.0); NEUTROPHILS # 7.6 10^3/uL (1.5-8.5); NEUTROPHILS % 80.9 % (36.0-66.0); PLATELET COUNT, AUTOMATED 384 10^3/uL (150-450)
[2025-05-01 08:39] LABS: ALT/SGPT 15 U/L (7.0-40); AST/SGOT 13 U/L (<34); CALCIUM LEVEL 7.3 MG/DL (8.3-10.6); CARBON DIOXIDE LEVEL 26 MMOL/L (20-31); CHLORIDE LEVEL 104 MMOL/L (98-107); CREATININE FOR GFR 0.35 MG/DL (0.70-1.30); GLOMERULAR FILTRATION RATE > 90.0 (>42); PHOSPHORUS LEVEL 2.7 MG/DL (2.4-5.1); POTASSIUM SERUM 3.4 MMOL/L (3.5-5.1); SODIUM LEVEL 139 MMOL/L (136-145)
[2025-05-01] MEDS: LR 1,000 ML IV SCH (10:11)
[2025-05-01] MEDS: KCL 20MEQ IN 100ML SWI (KRUN) 20 MEQ in IV 1 EA IV SCH (10:12)
[2025-05-01] MEDS: METOCLOPRAMIDE 5 MG TAB PO SCH (12:30)
[2025-05-01] MEDS: ANALGESIC BALM CRM 3 OZ TOP PRN (15:19)
[2025-05-01] MEDS: AMINO AC/ELECTROLYTE/DEX/CALC 2,000 ML IV SCH (17:46)
[2025-05-01] MEDS: FAT EMULSION IV 250 ML IV ONE (17:47)
[2025-05-01] MEDS: INSULIN LISPRO (NovoLOG) PER UNIT SC SCH (18:14)
[2025-05-02] VITALS (31 sets, daily range): BP systolic 104–140; BP diastolic 52–65; TEMP 97.6–98.9; O2SAT 71–100
[2025-05-02 07:59] LABS: ALT/SGPT 13 U/L (7.0-40); AST/SGOT 12 U/L (<34); CALCIUM LEVEL 7.5 MG/DL (8.3-10.6); CARBON DIOXIDE LEVEL 26 MMOL/L (20-31); CHLORIDE LEVEL 107 MMOL/L (98-107); CREATININE FOR GFR 0.41 MG/DL (0.70-1.30); GLOMERULAR FILTRATION RATE > 90.0 (>42); MAGNESIUM LEVEL 1.8 MG/DL (1.8-2.4); PHOSPHORUS LEVEL 3.1 MG/DL (2.4-5.1); POTASSIUM SERUM 4.0 MMOL/L (3.5-5.1); SODIUM LEVEL 141 MMOL/L (136-145)
[2025-05-02] MEDS: LR 1,000 ML IV SCH (09:15)
[2025-05-02] MEDS: MAG SULF 1GM/100ML (MAG RUN) 1 GM in IV 1 EA IV ONE (09:15)
[2025-05-02] MEDS: METOCLOPRAMIDE 5 MG TAB PO SCH (09:16)
[2025-05-02] MEDS: FAT EMULSION IV 250 ML IV ONE (17:56)
[2025-05-02] MEDS: MULTIVITAMIN -ADULT INJECTION 10 ML, ZINC/COPPER/MANGANESE/SELENIUM 1 ML in AMINO AC/EL... IV SCH (17:57)
[2025-05-02] MEDS: INSULIN LISPRO (NovoLOG) PER UNIT SC SCH (18:00)
[2025-05-03] VITALS (30 sets, daily range): BP systolic 112–154; BP diastolic 56–79; TEMP 97.8–98.9; O2SAT 93–100
[2025-05-03 10:11] LABS: BASO # 0.0 10^3/uL (0.0-0.2); BASO % 0.5 % (0.0-1.0); EOS # 0.2 10^3/uL (0.0-0.5); EOS % 2.5 % (0.0-3.0); LYMPH # 1.0 10^3/uL (1.5-5.0); LYMPH % 12.7 % (24.0-44.0); MONO # 0.4 10^3/uL (0.0-0.8); MONO % 5.9 % (2.0-8.0); NEUTROPHILS # 5.8 10^3/uL (1.5-8.5); NEUTROPHILS % 77.5 % (36.0-66.0); PLATELET COUNT, AUTOMATED 357 10^3/uL (150-450)
[2025-05-03 10:50] LABS: ALT/SGPT 12 U/L (7.0-40); AST/SGOT 18 U/L (<34); CALCIUM LEVEL 7.8 MG/DL (8.3-10.6); CARBON DIOXIDE LEVEL 23 MMOL/L (20-31); CHLORIDE LEVEL 107 MMOL/L (98-107); CREATININE FOR GFR 0.42 MG/DL (0.70-1.30); GLOMERULAR FILTRATION RATE > 90.0 (>42); PHOSPHORUS LEVEL 3.2 MG/DL (2.4-5.1); POTASSIUM SERUM 3.9 MMOL/L (3.5-5.1); SODIUM LEVEL 141 MMOL/L (136-145)
[2025-05-03] MEDS: LR 1,000 ML IV SCH (11:11)
[2025-05-03] MEDS ORDERED: INSULIN LISPRO (NovoLOG) PER UNIT SC SCH (18:00)
[2025-05-03] MEDS: MAG SULF 1GM/100ML (MAG RUN) 1 GM in IV 1 EA IV ONE (18:17)
[2025-05-03] MEDS: FAT EMULSION IV 250 ML IV ONE (18:20)
[2025-05-03] MEDS: AMINO AC/ELECTROLYTE/DEX/CALC 2,000 ML IV SCH (18:20)
[2025-05-03] MEDS: OLANZapine 10 MG TAB PO SCH (20:01)
[2025-05-04] VITALS (19 sets, daily range): BP systolic 130–164; BP diastolic 63–87; TEMP 97.6–98.5; O2SAT 96–100
[2025-05-04] MEDS ORDERED: MORPHINE 4 MG/ML 1 ML VIAL As Ordered ONE (06:31)
[2025-05-04] MEDS ORDERED: NITROGLYCERIN 0.4 MG SUBL TABLET As Ordered ONE (06:33)
[2025-05-04] MEDS ORDERED: FUROSEMIDE 40 MG/4 ML VIAL As Ordered ONE (06:38)
[2025-05-04] MEDS: LR 1,000 ML IV SCH (07:53)
== END 2025-05-04 12:30 | DRG 3 ==
LOC: EDBD 08:27 → M ED 08:27 → M SDC 13:55 → EEVIPCON 13:56 → M ED INP 13:56 → M ICU 16:27
PROVIDERS: ADMIT Surgery; ATTEND Internal Medicine Pulmonary Disease
PROC: 0D1B0Z4 Bypass Ileum to Cutaneous, Open Approach (ICD-10-PCS; 2025-04-14)
PROC: 5A1945Z Respiratory Ventilation, 24-96 Consecutive Hours (ICD-10-PCS; 2025-04-14)
PROC: 0DTF0ZZ Resection of Right Large Intestine, Open Approach (ICD-10-PCS; principal; 2025-04-14 13:30)
PROC: 0DTF0ZZ Resection of Right Large Intestine, Open Approach (ICD-10-PCS; 2025-04-15)
PROC: 30233N1 Transfusion of Nonautologous Red Blood Cells into Peripheral Vein, Percutaneous Approach (ICD-10-PCS; 2025-04-15)
PROC: 0B9M8ZZ Drainage of Bilateral Lungs, Via Natural or Artificial Opening Endoscopic (ICD-10-PCS; 2025-04-17)
PROC: 0B110F4 Bypass Trachea to Cutaneous with Tracheostomy Device, Open Approach (ICD-10-PCS; 2025-04-20)
PROC: 0DH63UZ Insertion of Feeding Device into Stomach, Percutaneous Approach (ICD-10-PCS; 2025-04-22)
PROC: 0F9430Z Drainage of Gallbladder with Drainage Device, Percutaneous Approach (ICD-10-PCS; 2025-04-29)
DX: A41.59 Other Gram-negative sepsis (principal); R65.21 Severe sepsis with septic shock; J96.00 Acute respiratory failure, unspecified whether with hypoxia or hypercapnia; K55.059 Acute (reversible) ischemia of intestine, part and extent unspecified; K65.0 Generalized (acute) peritonitis; I97.711 Intraoperative cardiac arrest during other surgery; I24.89 Other forms of acute ischemic heart disease; E87.0 Hyperosmolality and hypernatremia; R64 Cachexia; Z68.1 Body mass index [BMI] 19.9 or less, adult; E87.20 Acidosis, unspecified; N39.0 Urinary tract infection, site not specified; E46 Unspecified protein-calorie malnutrition; K81.0 Acute cholecystitis; F20.0 Paranoid schizophrenia; I10 Essential (primary) hypertension; I73.9 Peripheral vascular disease, unspecified; I25.10 Atherosclerotic heart disease of native coronary artery without angina pectoris; E87.6 Hypokalemia; E83.39 Other disorders of phosphorus metabolism; E78.5 Hyperlipidemia, unspecified; B95.62 Methicillin resistant Staphylococcus aureus infection as the cause of diseases classified elsewhere; Z86.73 Personal history of transient ischemic attack (TIA), and cerebral infarction without residual deficits; Z79.899 Other long term (current) drug therapy; Z79.82 Long term (current) use of aspirin; Z95.2 Presence of prosthetic heart valve